=== PATIENT | female | born 1960 | race Caucasian/White ===

== ENCOUNTER → 2024-02-10 15:10 | Outpatient (REF) | payer OTHER, SELFPAY | LOC: ANHLAB 15:10 | PROVIDERS: Visit Provider Plastic Surgery | DX: C44.712 Basal cell carcinoma of skin of right lower limb, including hip (principal) | CPT/HCPCS: 88305 ==

== ENCOUNTER 2024-07-30 10:09 | Outpatient (NON) | payer OTHER, SELFPAY ==
--- OUTSIDE RECORDS SUMMARY | 2024-07-31 10:33 | XMS_ITS | Clinical Summary ---
Author Organization [facility] Address [address] [place] [address] Phone Care Team Providers Care Dental Claims Processor Name Role Phone JESSICA PAGE DO Primary Care Provider [phone] Reason for Visit and Chief Complaint The Chief Complaint is: Well Woman Problems Includes: Problems addressed during this encounter and other active Problems All Visits Onset Date Resolved Date Provider Condition S tatus Osteopenia 10/20/2018 GAMALIEL BULLARD PA-C Act cali Last Documented On 9 9:29AM ; [facility] Synovial Cyst of Popliteal Space 09/28/2018 MORIAH PAGE DO Active Last Documented On 9 9:54PM ; [facility] Dysuria 06/22/2018 JESSICA PAGE DO Active Last Documented On 9 12:56PM ; [facility] Hematuria 06/22/2018 JESSICA PAGE DO Active Last Documented On 9 12:56PM ; [facility] Nephrolithiasis Left 06/20/2018 JESSICA PAGE DO Active Last Documented On 9 12:56PM ; [facility] Note: Unchanged Hemangioma of other sites 06/20/2018 JESSICA ESTRADA DO Active Last Documented On 9 11:04AM ; [facility] Note: Unchanged Bulging Intervertebral Disc Cervical 01/29/2018 JESSICA PAGE DO Active Last Documented On 8 8:49AM ; [facility] Note: Unchanged Skin Neoplasm Malignant 08/22/2014 JESSICA L PALCH EFF DO Active Last Documented On 5 3:44PM ; [facility] Abnormal Pap Smear 08/12/2014 GAMALIEL BULLARD PA-C Active Last Documented On 09/01/2015 9:40AM ; [facility] Note: ASCUS 2013 HPV neg. Plan of Treatment - Return to the clinic if condition worsens or new symptoms arise - Last Documented On 11/08/2022 10:33AM ; [facility] - Follow-up visit 1 year; pt would like to continue to do yearly PAP smears. - Last Documented On 11/08/2022 10:33AM ; [facility] Encourage yearly well woman visits for breast and female health. Labs today to get baseline liver and kidney function prior to starting Veozah. Pt declined lipid panel/other labs. Can repeat CMP in 3-6 mo to monitor liver function. Let me know how it is working for you in about 1 mo - Clinical summary provided to patient . Plan discussed and patient/parent/caregiver states understanding - Last Documented On 11/08/2022 10:33AM ; [facility] Recommended getting mammogram yearly, colonoscopy (Due: 2022 ) and DEXA/bone density test (Due: 2024 ). - Last Documented On 11/08/2022 10:33AM ; [facility] Education and Decision Aids were provided during visit for: Patient education about self -examination of breasts ~Daily calcium (1200mg) and Vit D (800 IU) for osteoporosis prevention Last Documented On 9:06AM ; [facility] Assessments Includes: Assessments from this encounter Findings - [Z01.419 - Encounter for gynecological examination (general) (routine) without abnormal findings] Routine gynecological exam with cervical pap smear - Last Documented On 11/08/2022 10:33AM ; [facility] - [N95.1 - Menopausal and female climacteric states] Menopause - Last Documented On 11/08/2022 10:33AM ; [facility] - [Z12.4 - Encounter for screening for malignant neoplasm of cervix] Screen malignant neoplasm cervix - Last Documented On 11/08/2022 10:33AM ; [facility] Instructions Includes: Instructions from this encounter Education and Decision Aids were provided during visit for: Patient education about self -examination of breasts ~Daily calcium (1200mg) and Vit D (800 IU) for osteoporosis prevention Last Documented On 3 9:06AM ; [facility] Medical Equipment - Implanted Devices Includes: Current Devices No Medical Equipment Recorded Medications Includes: Medications discussed during this encounter and other current Medications Discontinued / Stopped on this date on 09/01/2015 Aspir-Low 81 MG Tablet Delayed Release Pr ovider: Diagnosis: Last Documented On 11/08/2022 9:06AM By ARIEL FROST ; [facility] New / Renewed during this visit GAMALIEL BULLARD PA-C on 11/08/2022 Veozah 45 MG Oral Tablet Provider: CATARINO BULLARD PA-C 30 day supply: 30 tablet, 5 refills Diagnosis: Menopausal and female climacteric states One tablet daily Pharmacy: [address] , [place], [address] - Last Documented On 3 9:49AM By GAMALIEL BULLARD PA-C ; [facility] Current Medications (continue as prescribed) Vitamin D 50 MCG (1999 [place]) Oral Tablet 10/24/2020 Pr ovider: Diagnosis: Last Documented On 10/24/2020 8:54AM By Tiffany FROST ; [facility] ALPRAZolam 0.25 MG Oral Tablet 06/05/2019 Provider: JESSICA PAGE DO Diagnosis: Generalized anxi ety disorder as directed 1/4 to 1 q 8 to 12 hrs prn anxiety Last Documented On 06/05/2019 2:26PM By JESSICA PAGE DO ; [facility] Medications Administered Includes: Administered Medications from this encounter No Administered Medications Recorded Vital Signs Includes: Vital Signs from this encounter Vital Name 11/08/2022 09:00A Blood Pressure Sitting L 138/82 Pulse Rate-Sitting (bpm) 66 Respiration Rate (breaths/min) 20 Temp-Temporal 96.8 Height (in) 65 Weight (lb) 108.5 Body Mass Index 18.1 Body Surface Area 1.5 Oxygen Saturation (%) 100 Last Documented: On 11/08/2022 9:08AM ; [facility] Results Includes: Results discussed during this encounter No Results Recorded For Specified Dates History of Present Illness Includes: History of Present Illness from this encounter SHASHA SOSA is a 62 year old female. - Allergy list reviewed - Medication list reviewed - Not feeling tired - No headache - No breast symptoms - No breast symptoms LAST MAMMO:11/10/21 - No abdominal pain - No abdominal pain PREVIOUS COLONOSCOPY: Next one in 2024 - No female genital symptoms - No vaginal discharge - Hot flashes --horrible - No pain in the pelvic girdle - No anxiety - No depression PREVIOUS DEXA: 11/10/21--no change Social History Description Last Updated Tobacco non-user 01/17/2021 Last Documented On 3 9:00AM ; [facility] Current nonsmoker 04/18/2020 Last Documented On 3 9:00AM ; [facility] Non-smoker 10/22/2019 Last Documented On 3 9:00AM ; [facility] Smoking status : Never smoker 06/24/2019 Last Documented On 3 9:00AM ; [facility] Sexually active ; current partner x 40 y rs 10/20/2018 Last Documented On 3 9:00AM ; [facility] No tobacco use 01/29/2018 Last Documented On 3 9:00AM ; [facility] Procedures and Surgical History Includes: Procedures from this encounter Procedures Code Diagnosis Performing Provider Service L ocation Service Date review of medications documented 1160F Last Documented On 3 9:08AM ; [facility] Obtaining a Pap smear Q0091 Last Documented On 3 9:06AM ; [facility] history of cervical Pap smear PREVIOUS: 2021--ne g 70098 Last Documented On 3 9:43AM ; [facility] Surgical History Last Updated No history of tubal ligation 10/24/2020 Last Documented On 3 9:00AM ; [facility] History of appendectomy 08/12/2014 Last Documented On 3 9:00AM ; [facility] Medical History Includes: Medical History addressed during this encounter Description Last Updated History of screening mammogram was perfo rmed 11/10/2021 11/08/2022 Last Documented On 3 10:33AM ; [facility] History of colonoscopy fiberoptic was pe rformed 09/16/2019 --repeat 5 yrs 10/26/2021 Last Documented On 3 9:00AM ; [facility] LMP: 08/18/2015 09/01/2015 Last Documented On 3 9:00AM ; [facility] History of cervical dysplasia 2013--colp o neg 08/12/2014 Last Documented On 3 9:00AM ; [facility] Aborta 0 08/12/2014 Last Documented On 3 9:00AM ; [facility] 0 08/12/2014 Last Documented On 3 9:00AM ; [facility] Para 0 08/12/2014 Last Documented On 3 9:00AM ; [facility] Family History Includes: Family History addressed during this encounter Description Last Updated Family history of malignant neoplasm of large intestine MATERNAL GRANDMOTHER , MOTHER PRE CANCER 09/01/2015 Last Documented On 3 9:00AM ; [facility] Maternal history of colon cancer Last Documented On 3 9:00AM ; [facility] Maternal history of diabetes mellitus Last Documented On 3 9:00AM ; [facility] Maternal history of heart disease 2014 Last Documented On 3 9:00AM ; [facility] Maternal history of hyperlipidemia 04/11 Last Documented On 3 9:00AM ; [facility] Maternal history of hypertension 015 Last Documented On 3 9:00AM ; [facility] Maternal history of stroke syndrome 03/29 Last Documented On 3 9:00AM ; [facility] Maternal history of thyroid disorder Last Documented On 3 9:00AM ; [facility] Paternal history of heart disease 2014 Last Documented On 3 9:00AM ; [facility] Paternal history of hyperlipidemia 04/11 Last Documented On 3 9:00AM ; [facility] Paternal history of hypertension 015 Last Documented On 3 9:00AM ; [facility] Maternal grandmother's history of diabet es mellitus GRANDMOTHER , AUNT 08/12/2014 Last Documented On 3 9:00AM ; [facility] Family history of essential hypertension GRANDMOTHER, MOTHER 08/12/2014 Last Documented On 3 9:00AM ; [facility] No family history of malignant female br east neoplasm 08/12/2014 Last Documented On 3 9:00AM ; [facility] Review of Systems Includes: Review of Systems from this encounter Systemic: No recent weight change. No edema. Head: No headache. Eyes: No vision problems. Breasts: No breast lump, no nipple discharge, and no pain in breast. Cardiovascular: No chest pain or discomfort. Pulmonary: No dyspnea and not expressed as feeling short of breath. Gastrointestinal: No abdominal pain and no melena. Genitourinary: No hematuria. Neurological: No dizziness and no fainting. Skin: No skin lesions. Mental Status Includes: Mental Status from this encounter Description Oriented to time, place, and person No anxiety Functional Status Includes: Functional Status from this encounter No Functional Status Recorded Physical Exam Includes: Physical Exam from this encounter Allergies Includes: Active Allergies No Known Allergies Encounters Encounter Provider Location Date Check-In Time Check-Out Time Diagnosis [facility] - [facility] GAMALIEL BULLARD PA-C [facility] 023 8:41AM 10:00AM Menopause,Routin e Gynecological Exam with Cervical Pap Smear,Screen Malignant Neoplasm Cervix Insurance Includes: Active Insurance Policies Plan Name Member ID Group # Subscriber Relationship Effect cali Dates 1 - [facility] [employer] [id number] SHANNAN SOSA A Clinical Notes Includes: Clinical Notes from this encounter * Progress note Date Encounter Last Documented by 11/08/2022 [facility] - EST[facility]LISHED PT Last documented on 11/08/2022; 10:33 AM, GAMALIEL BULLARD PA-C; [facility] Active Problems & Conditions - 795.00 - Abnormal Pap Smear - ASCUS 2012 HPV neg. - M50.20 - Bulging Intervertebral Disc Cervical - R30.0 - Dysuria - D18.09 - Hemangioma of other sites - R31.9 - Hematuria - N20.0 - Nephrolithiasis Left - M85.80 - Osteopenia - 173.9 - Skin Neoplasm Malignant - M71.21 - Synovial Cyst of Popliteal Space Chief Complaint The Chief Complaint is: Well Woman. Reason For Visit Visit for: routine history and physical. History of Present Illness MARGARET SOSA is a 62 year old female. - Allergy list reviewed - Medication list reviewed - Not feeling tired - No headache - No breast symptoms - No breast symptoms LAST MAMMO:11/10/21 - No abdominal pain - No abdominal pain PREVIOUS COLONOSCOPY: Next one in 2024 - No female genital symptoms - No vaginal discharge - Hot flashes --horrible - No pain in the pelvic girdle - No anxiety - No depression PREVIOUS DEXA: 11/10/21--no change Current Medication - ALPRAZolam 0.25 MG Oral Tablet as directed 05/02 to 1 q 8 to 12 hrs prn anxiety, 30 days, 0 refills - Vitamin D 50 MCG (1999 [place]) Oral Tablet One tablet daily 0 days, 0 refills Past Medical/Surgical History Reported: LMP: 08/18/2015. : 0, para 0, and aborta 0. Other: Colonoscopy fiberoptic was performed 09/16/2019 --repeat 5 yrs. Screening mammogram was performed 11/10/2021 Diagnoses: Cervical dysplasia 2012--colpo neg Surgical: - Appendectomy - No tubal ligation Social History Tobacco use: No tobacco use. Current nonsmoker, non-smoker, and smoking status: Never smoker. Sexual: Sexually active; current partner x 40 yrs. Allergies - No Known Allergies Family History Essential hypertension GRANDMOTHER, MOTHER Malignant neoplasm of large intestine MATERNAL GRANDMOTHER , MOTHER PRE CANCER No diagnosis of malignant female breast neoplasm Paternal: Systemic hypertension Heart disease Hyperlipidemia Maternal: Systemic hypertension Heart disease Hyperlipidemia Thyroid disorder Diabetes mellitus Stroke syndrome Colon cancer Maternal grandmother's: Diabetes mellitus GRANDMOTHER , AUNT Review Of Systems Systemic: No recent weight change. No edema. Head: No headache. Eyes: No vision problems. Breasts: No breast lump, no nipple discharge, and no pain in breast. Cardiovascular: No chest pain or discomfort. Pulmonary: No dyspnea and not expressed as feeling short of breath. Gastrointestinal: No abdominal pain and no melena. Genitourinary: No hematuria. Neurological: No dizziness and no fainting. Skin: No skin lesions. Physical Findings - Vitals taken 11/08/2022 09:00 am BP-Sitting L 138/82 mmHg Pulse Rate-Sitting 66 bpm Respiration Rate 20 per min Temp-Temporal 96.8 F Height 65 in Weight 108 lbs 8 oz Body Mass Index 18.1 kg/m2 Body Surface Area 1.5 m2 Oxygen Saturation 100 % General Appearance: - Well developed. - Well nourished. - In no acute distress. Neck: Suppleness: - Neck demonstrated no decrease in suppleness. Thyroid: - Showed no abnormalities. Cervical Mass: - No cervical mass was seen. Eyes: General/bilateral: Extraocular Movements: - Normal. Ears: General/bilateral: External Auditory Canal: - External auditory meatus normal. Tympanic Membrane: - Normal. Nose: General/bilateral: Discharge: - No nasal discharge. Sinus Tenderness: - No sinus tenderness. Pharynx: Oropharynx: - Normal. Lymph Nodes: - Supraclavicular lymph nodes were not enlarged. - Axillary lymph nodes were not enlarged. - Right axillary lymph nodes were not enlarged. - Left axillary lymph nodes were not enlarged. Chest: - No thoracic asymmetry was noted. Breasts: Right Breast: - No retraction of the nipple. - No deviation of the nipple. - No abnormal secretion. - No mass was found. - No tenderness. - No diffuse fibrous tissue. Left Breast: - No retraction of the nipple. - No deviation of the nipple. - No abnormal secretion. - No mass was found. - No tenderness. - No diffuse fibrous tissue. Lungs: - Normal breath sounds/voice sounds. - No wheezing was heard. - No rhonchi were heard. - No rales/crackles were heard. Cardiovascular: Heart Rate And Rhythm: - Normal. Murmurs: - No murmurs were heard. Back: - Normal. Abdomen: Auscultation: - Bowel sounds were normal. Palpation: - Abdominal non-tender. - No mass was palpated in the abdomen. Liver: - Not enlarged. Spleen: - Not enlarged. Genitalia: External: - Genitalia showed no abnormalities. Pelvic: - No ovarian mass. Vagina: - No vaginal discharge was observed. - No cystocele was observed. - No rectocele was observed. Cervix: - Showed no lesion. - Did not demonstrate pain elicited by motion. Uterus: - Not enlarged. - Not tender. Uterine Adnexae: - Uterine adnexa was not tender. Musculoskeletal System: General/bilateral: - Overall findings were normal. Neurological: - Oriented to time, place, and person. Psychiatric: Psychiatric: Value PHQ9 score: 0 Skin: - General appearance was normal. - Texture was normal. - Turgor was normal. - Color and pigmentation were normal. - Moisture was normal. - Temperature was normal. - No skin lesions. Assessment - [Z01.419 - Encounter for gynecological examination (general) (routine) without abnormal findings] Routine gynecological exam with cervical pap smear - [N95.1 - Menopausal and female climacteric states] Menopause - [Z12.4 - Encounter for screening for malignant neoplasm of cervix] Screen malignant neoplasm cervix Previous Tests Pathology: Cytology: Cervical Pap smear PREVIOUS: 2021--neg. Therapy - Obtaining a Pap smear. Counseling/Education - Patient education about self-examination of breasts Daily calcium (1200mg) and Vit D (800 IU) for osteoporosis prevention Plan StartCited - Calculus of kidney Lab: CMP EndCited StartCited - Encntr screen mammogram for malignant neoplasm of breast Radiology @ [facility]/*MAMMOGRAPHY: Screening Mammogram Instructions: Additional images/ultrasounds if indicated Please send to PCP EndCited StartCited - Encounter for screening for malignant neoplasm of cervix Lab: PAP SMEAR W/REFLEX HPV(QUEST # [id number]) EndCited StartCited - Menopausal and female climacteric states Veozah 45 MG tablet One tablet daily, 30 days, 5 refills EndCited - Return to the clinic if condition worsens or new symptoms arise - Follow-up visit 1 year; pt would like to continue to do yearly PAP smears. Encourage yearly well woman visits for breast and female health. Labs today to get baseline liver and kidney function prior to starting Veozah. Pt declined lipid panel/other labs. Can repeat CMP in 3-6 mo to monitor liver function. Let me know how it is working for you in about 1 mo - Clinical summary provided to patient . Plan discussed and patient/parent/caregiver states understanding Recommended getting mammogram yearly, colonoscopy (Due: 2022 ) and DEXA/bone density test (Due: 2024 ). Practice Management Review of medications documented.
--- OUTSIDE RECORDS SUMMARY | 2024-07-31 10:34 | XMS_ITS | Clinical Summary ---
Author Organization [facility] Address [address] [place] [id number] Care Team Providers Care Bull Driver Name Role Phone Unavailable Primary Care Provider Unavailabl e Encounters Date Type Department Care Team Description 07/28/2024 External Device Data [facility] Provider, Abstract 07/15/2024 External Device Data [facility] Provider, Abstract 07/08/2024 External Device Data [facility] Provider, Abstract 07/07/2024 External Device Data [facility] Provider, Abstract 07/06/2024 External Device Data [facility] Provider, Abstract 07/04/2024 External Device Data [facility] Provider, Abstract 07/03/2024 External Device Data [facility] Provider, Abstract 07/01/2024 External Device Data [facility] Provider, Abstract 06/17/2024 External Device Data [facility] Provider, Abstract 05/27/2024 External Device Data [facility] Provider, Abstract 05/21/2024 External Device Data [facility] Provider, Abstract 05/12/2024 External Device Data [facility] Provider, Abstract from Last 3 Months Social History Tobacco Use Types Packs/Day Years Used Date Smoking Tobacco: Never Assessed Comments Unknown Sex and Gender Information Value Date Recorded Sex Assigned at Not on file 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 Gender Identity Not on file Sexual Orientation Not on file Plan of Treatment Health Maintenance Due Date Last Done Comments DTAP/TDAP/TD VACCINES (1 - Tdap) 02/23/1980 HPV/Cotest (21-29) 1982 CERVICAL CANCER SCREENING 1991 HPV/Cotest (30-65) 1991 PAP SMEAR 1991 BREAST CANCER SCREENING 2001 COLORECTAL SCREENING 2006 Colorectal Cancer Screening 2006 FIT-DNA Q 3 years 2006 FIT/FOBT Q 1 year 2006 Flex Sig/CT Colonography Q 5 years 2006 ZOSTER VACCINE (1 of 2) 2011 INFLUENZA VACCINE (#1) 2023 RSV VACCINE (60+ or ) (1 - 1-dose 75+ series) 02/23/2036 PNEUMOCOCCAL VACCINE 0-49 YEARS Aged Out No longer eligible based on patient's age to complete this topic Insurance [address] [place] [address] [employer] CHOICE POS II
--- OUTSIDE RECORDS SUMMARY | 2024-07-31 10:34 | XMS_ITS | Clinical Summary ---
Author Organization [facility] Address [address] [place] [address] Phone Care Team Providers Care Product Development Carpenter Name Role Phone KAYLEE DO JESSICA Penny Primary Care Provider [phone] Reason for Visit and Chief Complaint The Chief Complaint is: patient is here due to having left si pain since last Problems Includes: Problems addressed during this encounter and other active Problems All Visits Onset Date Resolved Date Provider Condition S tatus Osteopenia 10/20/2018 GAMALIEL BULLARD PA-C Act cali Last Documented On 9 9:29AM ; [facility] Synovial Cyst of Popliteal Space 09/28/2018 MORIAH BAILEY DO Active Last Documented On 9 9:54PM ; [facility] Dysuria 06/22/2018 JESSICA BAILEY DO Active Last Documented On 9 12:56PM ; [facility] Hematuria 06/22/2018 JESSICA BAILEY DO Active Last Documented On 9 12:56PM ; [facility] Nephrolithiasis Left 06/20/2018 JESSICA BAILEY DO Active Last Documented On 9 12:56PM ; [facility] Note: Unchanged Hemangioma of other sites 06/20/2018 JESSICA ESTRADA DO Active Last Documented On 9 11:04AM ; [facility] Note: Unchanged Bulging Intervertebral Disc Cervical 01/29/2018 JESSICA BAILEY DO Active Last Documented On 8 8:49AM ; [facility] Note: Unchanged Skin Neoplasm Malignant 08/22/2014 JESSICA ANDREA DO Active Last Documented On 5 3:44PM ; [facility] Abnormal Pap Smear 08/12/2014 GAMALIEL BULLARD PA-C Active Last Documented On 09/01/2015 9:40AM ; [facility] Note: ASCUS 2013 HPV neg. Plan of Treatment - Return to the clinic if condition worsens or new symptoms arise - Last Documented On 12/01/2022 5:37PM ; [facility] - Go to the emergency room if condition worsens - Last Documented On 12/01/2022 5:37PM ; [facility] - Watch for signs/symptoms of infection - Last Documented On 12/01/2022 5:37PM ; [facility] - Medication instruction - Last Documented On 12/01/2022 5:37PM ; [facility] PLAN [Use for s.o.a.p. note free text]. - Last Documented On 12/01/2022 5:37PM ; [facility] Continue taking ibuprofen. She was advised to avoid bending or twisting. - Last Documented On 12/01/2022 5:37PM ; [facility] Pending Tests Order Diagnosis Results Due Ordering Albina morfin In office procedures - *Family Practice OMT 1-2 Areas Segmental and somatic dysfunction of sacral region 12/11/22 JESSICA BAILEY DO Last Documented On 3 5:37PM ; [facility] Instructions to patient Go to the emergency room if condition worsens Last Documented On 3 9:26AM ; [facility] Watch for signs/symptoms of infection Last Documented On 3 9:26AM ; [facility] Assessments Includes: Assessments from this encounter Findings - Arthralgias of multiple sites [M25.50 - Pain in unspecified joint] - Last Documented On 12/01/2022 5:37PM ; [facility] - Somatic dysfunction of lumbar region [M99.03 - Segmental and somatic dysfunction of lumbar region] - Last Documented On 12/01/2022 5:37PM ; [facility] - Somatic dysfunction of sacroiliac region [M99.04 - Segmental and somatic dysfunction of sacral region] - Last Documented On 12/01/2022 5:37PM ; [facility] - Somatic dysfunction of sacrum [M99.04 - Segmental and somatic dysfunction of sacral region] - Last Documented On 12/01/2022 5:37PM ; [facility] Instructions Includes: Instructions from this encounter Instructions to patient Go to the emergency room if condition worsens Last Documented On 3 9:26AM ; [facility] Watch for signs/symptoms of infection Last Documented On 3 9:26AM ; [facility] Medical Equipment - Implanted Devices Includes: Current Devices No Medical Equipment Recorded Medications Includes: Medications discussed during this encounter and other current Medications Current Medications (continue as prescribed) Vitamin D 50 MCG (1999) Oral Tablet 10/24/2020 Pr ovider: Diagnosis: Last Documented On 10/24/2020 8:54AM By Tiffany FROST ; [facility] ALPRAZolam 0.25 MG Oral Tablet 06/05/2019 Provider: JESSICA BAILEY DO Diagnosis: Generalized anxi ety disorder as directed 05/02 to q 8 to 12 hrs prn anxiety Last Documented On 06/05/2019 2:26PM By JESSICA BAILEY DO ; [facility] Medications Administered Includes: Administered Medications from this encounter No Administered Medications Recorded Vital Signs Includes: Vital Signs from this encounter Vital Name 11/27/2022 09:09A Blood Pressure Sitting L 126/80 Pulse Rate-Sitting (bpm) 71 Respiration Rate (breaths/min) 20 Height (in) 65 Weight (lb) 109 Body Mass Index 18.1 Body Surface Area 1.5 Oxygen Saturation (%) 97 Last Documented: On 11/27/2022 9:10AM ; [facility] Results Includes: Results discussed during this encounter No Results Recorded For Specified Dates History of Present Illness Includes: History of Present Illness from this encounter SHASHA SOSA is a 62 year old female. - Allergy list reviewed - Medication list reviewed - Pain - No muscle weakness - Lower back pain radiating - Muscle spasms - No recent falls - No numbness - No sleep disturbances The patient is a pleasant 62-year-old female, who presents today with acute concern. She complains of pain in her left hip since last . The patient points to the left sacroiliac joint as the site of worse pain. She reports that the pain was so severe while she was sitting in the chair. She has tried ibuprofen with relief, but pain returned when it wore off. She has also had lower back pain for a long period of time. An x-ray of lumbar sine was done in the clinic, which showed mild arthritis and spasms. Social History Description Last Updated Tobacco non-user 01/17/2021 Last Documented On 3 9:09AM ; [facility] Current nonsmoker 04/18/2020 Last Documented On 3 9:09AM ; [facility] Non-smoker 10/22/2019 Last Documented On 3 9:09AM ; [facility] Smoking status : Never smoker 06/24/2019 Last Documented On 3 9:09AM ; [facility] Sexually active ; current partner x 40 y rs 10/20/2018 Last Documented On 3 9:09AM ; [facility] No tobacco use 01/29/2018 Last Documented On 3 9:09AM ; [facility] Procedures and Surgical History Includes: Procedures from this encounter Procedures Code Diagnosis Performing Provider Service L ocation Service Date continue current medication Last Documented On 3 5:36PM ; [facility] plan of care reviewed and agreed to Last Documented On 3 9:26AM ; [facility] plan of care reviewed and agreed to by t he patient Last Documented On 3 9:26AM ; [facility] high velocity / low amplitude osteopathi c manipulative treatment TOLERATED WELL Last Documented On 3 5:36PM ; [facility] muscle energy therapy TOLERATED WELL Last Documented On 3 5:36PM ; [facility] Pt encouraged to be compliant with curre nt treatment Last Documented On 3 9:26AM ; [facility] Discussed Exercise Last Documented On 3 5:36PM ; [facility] OMT - Soft tissue/muscle stretching tech niques TOLERATED WELL Last Documented On 3 5:36PM ; [facility] Surgical History Last Updated No history of tubal ligation 10/24/2020 Last Documented On 3 9:09AM ; [facility] History of appendectomy 08/12/2014 Last Documented On 3 9:09AM ; [facility] Medical History Includes: Medical History addressed during this encounter Description Last Updated History of screening mammogram was perfo rmed 11/10/2021 11/08/2022 Last Documented On 3 9:09AM ; [facility] History of colonoscopy fiberoptic was pe rformed 09/16/2019 --repeat 5 yrs 10/26/2021 Last Documented On 3 9:09AM ; [facility] LMP: 08/18/2015 09/01/2015 Last Documented On 3 9:09AM ; [facility] History of cervical dysplasia 2012--colp o neg 08/12/2014 Last Documented On 3 9:09AM ; [facility] Aborta 0 08/12/2014 Last Documented On 3 9:09AM ; [facility] 0 08/12/2014 Last Documented On 3 9:09AM ; [facility] Para 0 08/12/2014 Last Documented On 3 9:09AM ; [facility] Family History Includes: Family History addressed during this encounter Description Last Updated Family history of malignant neoplasm of large intestine MATERNAL GRANDMOTHER , MOTHER PRE CANCER 09/01/2015 Last Documented On 3 9:09AM ; [facility] Maternal history of colon cancer 015 Last Documented On 3 9:09AM ; [facility] Maternal history of diabetes mellitus Last Documented On 3 9:09AM ; [facility] Maternal history of heart disease 2014 Last Documented On 3 9:09AM ; [facility] Maternal history of hyperlipidemia 04/11 Last Documented On 3 9:09AM ; [facility] Maternal history of hypertension 015 Last Documented On 3 9:09AM ; [facility] Maternal history of stroke syndrome 03/29 Last Documented On 3 9:09AM ; [facility] Maternal history of thyroid disorder Last Documented On 3 9:09AM ; [facility] Paternal history of heart disease 2014 Last Documented On 3 9:09AM ; [facility] Paternal history of hyperlipidemia 04/11 Last Documented On 3 9:09AM ; [facility] Paternal history of hypertension 015 Last Documented On 3 9:09AM ; [facility] Maternal grandmother's history of diabet es mellitus GRANDMOTHER , AUNT 08/12/2014 Last Documented On 3 9:09AM ; [facility] Family history of essential hypertension GRANDMOTHER, MOTHER 08/12/2014 Last Documented On 3 9:09AM ; [facility] No family history of malignant female br east neoplasm 08/12/2014 Last Documented On 3 9:09AM ; [facility] Review of Systems Includes: Review of Systems from this encounter Head: No headache. Cardiovascular: No chest pain or discomfort and no palpitations. Pulmonary: No dyspnea. Musculoskeletal: Pain localized to one or more joints. Neurological: No dizziness. Psychological: No sleep disturbances. Mental Status Includes: Mental Status from this encounter Description Oriented to time, place, and person Functional Status Includes: Functional Status from this encounter No Functional Status Recorded Physical Exam Includes: Physical Exam from this encounter Allergies Includes: Active Allergies No Known Allergies Encounters Encounter Provider Location Date Check-In Time Check-Out Time Diagnosis PROBLEM VISIT [facility]ESSICA [facility]AI[facility]/28/19 23 8:41AM 10:02AM Somatic Dysfunction of Lumbar Region,Somatic Dysfunction of Sacroiliac Region,Somatic Dysfunction of Sacrum,Arthral gias Multiple Sites Insurance Includes: Active Insurance Policies Plan Name Member ID Group # Subscriber Relationship Effect cali Dates 1 - [employer] [id number] SHANNAN SOSA A Clinical Notes Includes: Clinical Notes from this encounter * Progress note Date Encounter Last Documented by 11/27/2022 PROBLEM VISIT Last documented on 12/01/2022; 5:37 PM, JESSICA BAILEY DO; [facility] Active Problems & Conditions - 795.00 - Abnormal Pap Smear - M50.20 - Bulging Intervertebral Disc Cervical - R30.0 - Dysuria - D18.09 - Hemangioma of other sites - R31.9 - Hematuria - N20.0 - Nephrolithiasis Left - M85.80 - Osteopenia - 173.9 - Skin Neoplasm Malignant - M71.21 - Synovial Cyst of Popliteal Space Chief Complaint The Chief Complaint is: Patient is here due to having left si pain since last . History of Present Illness MARGARET SOSA is a 62 year old female. - Allergy list reviewed - Medication list reviewed - Pain - No muscle weakness - Lower back pain radiating - Muscle spasms - No recent falls - No numbness - No sleep disturbances The patient is a pleasant 62-year-old female, who presents today with acute concern. She complains of pain in her left hip since last . The patient points to the left sacroiliac joint as the site of worse pain. She reports that the pain was so severe while she was sitting in the chair. She has tried ibuprofen with relief, but pain returned when it wore off. She has also had lower back pain for a long period of time. An x-ray of lumbar sine was done in the clinic, which showed mild arthritis and spasms. Current Medication - ALPRAZolam 0.25 MG Oral Tablet as directed /4 to 1 q 8 to 12 hrs prn anxiety, 30 days, 0 refills - [place] 45 MG Oral Tablet One tablet daily, 30 days, 5 refills - Vitamin D 50 MCG (1999 [...] mellitus GRANDMOTHER , AUNT Review Of Systems Head: No headache. Cardiovascular: No chest pain or discomfort and no palpitations. Pulmonary: No dyspnea. Musculoskeletal: Pain localized to one or more joints. Neurological: No dizziness. Psychological: No sleep disturbances. Physical Findings - Vitals taken 11/27/2022 09:09 am BP-Sitting L 126/80 mmHg Pulse Rate-Sitting 71 bpm Respiration Rate 20 per min Height 65 in Weight 109 lbs Body Mass Index 18.1 kg/m2 Body Surface Area 1.5 m2 Oxygen Saturation 97 % General Appearance: - In no acute distress. Eyes: General/bilateral: Pupils: - PERRLA. Lungs: - Normal breath sounds/voice sounds. Cardiovascular: Heart Rate And Rhythm: - Normal. Murmurs: - No murmurs were heard. Edema: - Not present. Back: - Normal. Musculoskeletal System: General/bilateral: - Sacrum Two-Point Discrimination Neutral Left. - Musculoskeletal system: normal. Thoracic Spine: General/bilateral: - Thoracic spine exhibited rib motion on the left. - Palpation of the thoracic spine revealed abnormalities. - Thoracic spine exhibited tenderness on palpation. - Side Bent Left, Rotated Right. Lumbar / Lumbosacral Spine: General/bilateral: - Lumbosacral spine exhibited muscle spasms. - Sacro-iliac tenderness on the left. - Side Bent Right, Rotated Left. - Palpation of the lumbosacral spine revealed no abnormalities. - Straight-leg raise test normal. Toes: General/bilateral: - Toe Raises were =. Neurological: - Oriented to time, place, and person. Sensation: - No numbness to lower extremity(s). Gait And Stance: - Normal. Reflexes: - Deep tendon reflexes were normal. Peripheral Nerves: - Braggarts test was negative. - Leseques Testwas negative. Skin: - General appearance was normal. Assessment - Arthralgias of multiple sites [M25.50 - Pain in unspecified joint] - Somatic dysfunction of lumbar region [M99.03 - Segmental and somatic dysfunction of lumbar region] - Somatic dysfunction of sacroiliac region [M99.04 - Segmental and somatic dysfunction of sacral region] - Somatic dysfunction of sacrum [M99.04 - Segmental and somatic dysfunction of sacral region] Therapy - Discussed Exercise. - Continue current medication. - Pt encouraged to be compliant with current treatment. - High velocity / low amplitude osteopathic manipulative treatment TOLERATED WELL, muscle energy therapy TOLERATED WELL, and OMT - Soft tissue/muscle stretching techniques TOLERATED WELL. - Plan of care reviewed and agreed to by the patient. Plan StartCited - Segmental and somatic dysfunction of lumbar region X-ray/IN OFFICE XRAYS: Lumbar Spine Complete EndCited StartCited - Segmental and somatic dysfunction of sacral region In office procedures/*Family Practice: OMT 1-2 Areas EndCited - Return to the clinic if condition worsens or new symptoms arise - Go to the emergency room if condition worsens - Watch for signs/symptoms of infection - Medication instruction PLAN [Use for s.o.a.p. note free text]. Continue taking ibuprofen. She was advised to avoid bending or twisting. Other Konstantin Swartz, scribing the following service on behalf of Dr. Jessica Bailey, Lenora.Karina.
--- OUTSIDE RECORDS SUMMARY | 2024-07-31 10:34 | XMS_ITS ---
Care Plan - [facility] Created on: July 31, 2024 TATUMNYROBBIECHILANGO Conteh : 1960 Sex: Female Author Organization [facility] Address [address] [address] Phone Care Team Providers Care Order Desk Clerk Name Role Phone JESSICA PAGE DO Primary Care Provider [phone]
--- OUTSIDE RECORDS SUMMARY | 2024-07-31 10:34 | XMS_ITS | Clinical Summary ---
Author Organization [facility] Address [address] [place] [address] Phone Care Team Providers Care Psychologist Developmental Name Role Phone JESSICA PAGE DO Primary Care Provider [phone] Reason for Visit and Chief Complaint * PHONE CALL Problems Includes: Problems addressed during this encounter and other active Problems All Visits Onset Date Resolved Date Provider Condition S tatus Osteopenia 10/20/2018 GAMALIEL BULLARD PA-C Act cali Last Documented On 9 9:29AM ; [facility] Synovial Cyst of Popliteal Space 09/28/2018 MORIAH PAGE DO Active Last Documented On 9 9:54PM ; [facility] Dysuria 06/22/2018 JESSICA PAGE DO Active Last Documented On 9 12:56PM ; [facility] Hematuria 06/22/2018 JESSICA PAGE DO Active Last Documented On 9 12:56PM ; [facility] Nephrolithiasis Left 06/20/2018 JESSICA PAGE DO Active Last Documented On 9 12:56PM ; [facility] Note: Unchanged Hemangioma of other sites 06/20/2018 JESSICA ESTRADA DO Active Last Documented On 9 11:04AM ; [facility] Note: Unchanged Bulging Intervertebral Disc Cervical 01/29/2018 JESSICA PAGE DO Active Last Documented On 8 8:49AM ; [facility] Note: Unchanged Skin Neoplasm Malignant 08/22/2014 JESSICA ANDREA DO Active Last Documented On 5 3:44PM ; [facility] Abnormal Pap Smear 08/12/2014 GAMALIEL BULLARD PA-C Active Last Documented On 09/01/2015 9:40AM ; [facility] Note: ASCUS 2013 HPV neg. Plan of Treatment No Plan of Treatment Recorded Assessments Includes: Assessments from this encounter No Assessments Recorded Medical Equipment - Implanted Devices Includes: Current Devices No Medical Equipment Recorded Medications Includes: Medications discussed during this encounter and other current Medications Current Medications (continue as prescribed) Vitamin D 50 MCG (1999) Oral Tablet 10/24/2020 Pr ovider: Diagnosis: Last Documented On 10/24/2020 8:54AM By Tiffany FROST ; [facility] ALPRAZolam 0.25 MG Oral Tablet 06/05/2019 Provider: JESSICA PAGE DO Diagnosis: Generalized anxi ety disorder as directed 05/02 to 1 q 8 to 12 hrs prn anxiety Last Documented On 06/05/2019 2:26PM By JESSICA PAGE DO ; [facility] Medications Administered Includes: Administered Medications from this encounter No Administered Medications Recorded Results Includes: Results discussed during this encounter No Results Recorded For Specified Dates History of Present Illness Includes: History of Present Illness from this encounter No History of Present Illness Recorded Social History Description Last Updated Tobacco non-user 01/17/2021 Last Documented On 3 9:49AM ; [facility] Current nonsmoker 04/18/2020 Last Documented On 3 9:49AM ; [facility] Non-smoker 10/22/2019 Last Documented On 3 9:49AM ; [facility] Smoking status : Never smoker 06/24/2019 Last Documented On 3 9:49AM ; [facility] Sexually active ; current partner x 40 y rs 10/20/2018 Last Documented On 3 9:49AM ; [facility] No tobacco use 01/29/2018 Last Documented On 3 9:49AM ; [facility] Procedures and Surgical History Surgical History Last Updated No history of tubal ligation 10/24/2020 Last Documented On 3 9:49AM ; [facility] History of appendectomy 08/12/2014 Last Documented On 3 9:49AM ; [facility] Medical History Includes: Medical History addressed during this encounter Description Last Updated History of screening mammogram was perfo rmed 11/10/2021 11/08/2022 Last Documented On 3 9:49AM ; [facility] History of colonoscopy fiberoptic was pe rformed 09/16/2019 --repeat 5 yrs 10/26/2021 Last Documented On 3 9:49AM ; [facility] LMP: 08/18/2015 09/01/2015 Last Documented On 3 9:49AM ; [facility] History of cervical dysplasia 2012--colp o neg 08/12/2014 Last Documented On 3 9:49AM ; [facility] Aborta 0 08/12/2014 Last Documented On 3 9:49AM ; [facility] 0 08/12/2014 Last Documented On 3 9:49AM ; [facility] Para 0 08/12/2014 Last Documented On 3 9:49AM ; [facility] Family History Includes: Family History addressed during this encounter Description Last Updated Family history of malignant neoplasm of large intestine MATERNAL GRANDMOTHER , MOTHER PRE CANCER 09/01/2015 Last Documented On 3 9:49AM ; [facility] Maternal history of colon cancer 015 Last Documented On 3 9:49AM ; [facility] Maternal history of diabetes mellitus Last Documented On 3 9:49AM ; [facility] Maternal history of heart disease 2014 Last Documented On 3 9:49AM ; [facility] Maternal history of hyperlipidemia 04/11 Last Documented On 3 9:49AM ; [facility] Maternal history of hypertension 015 Last Documented On 3 9:49AM ; [facility] Maternal history of stroke syndrome 03/29 Last Documented On 3 9:49AM ; [facility] Maternal history of thyroid disorder Last Documented On 3 9:49AM ; [facility] Paternal history of heart disease 2014 Last Documented On 3 9:49AM ; [facility] Paternal history of hyperlipidemia 04/11 Last Documented On 3 9:49AM ; [facility] Paternal history of hypertension 015 Last Documented On 3 9:49AM ; [facility] Maternal grandmother's history of diabet es mellitus GRANDMOTHER , AUNT 08/12/2014 Last Documented On 3 9:49AM ; [facility] Family history of essential hypertension GRANDMOTHER, MOTHER 08/12/2014 Last Documented On 3 9:49AM ; [facility] No family history of malignant female br east neoplasm 08/12/2014 Last Documented On 3 9:49AM ; [facility] Review of Systems Includes: Review of Systems from this encounter No Review of Systems Recorded Mental Status Includes: Mental Status from this encounter No Mental Status Recorded Functional Status Includes: Functional Status from this encounter No Functional Status Recorded Physical Exam Includes: Physical Exam from this encounter No Physical Exam Recorded Allergies Includes: Active Allergies No Known Allergies Encounters Encounter Provider Location Date Check-In Time Check-Out Time Diagnosis * PHONE CALL GAMALIEL BULLARD PA-C 12/26/2022 8:40AM 11:59PM Insurance Includes: Active Insurance Policies Plan Name Member ID Group # Subscriber Relationship Effect cali Dates 1 - [facility] [employer] [id number] SHANNAN SOSA Clinical Notes Includes: Clinical Notes from this encounter * Progress note Date Encounter Last Documented by 12/26/2022 * PHONE CALL Last documented on 12/27/2022; 9:49 AM, GAMALIEL BULLARD PA-C; [facility] Active Problems & Conditions - 795.00 - Abnormal Pap Smear - ASCUS 2012 HPV neg. - M50.20 - Bulging Intervertebral Disc Cervical - R30.0 - Dysuria - D18.09 - Hemangioma of other sites - R31.9 - Hematuria - N20.0 - Nephrolithiasis Left - M85.80 - Osteopenia - 173.9 - Skin Neoplasm Malignant - M71.21 - Synovial Cyst of Popliteal Space Chief Complaint Phone Call - Chief Concern: reason for call: Pt called to let you know that she has stopped Veozah. She has been on it for a month and it did not help at all. thanks! pt phone # for return call: [phone] Date/Initials: 12/26 [facility]. Current Medication - ALPRAZolam 0.25 MG Oral Tablet as directed 1/4 to 1 q 8 [...]
--- OUTSIDE RECORDS SUMMARY | 2024-07-31 10:34 | XMS_ITS | Clinical Summary ---
Author Organization [facility] Address [address] [place] [address] Phone Care Team Providers Care Chief Nurse Name Role Phone KAYLEE DO JESSICA Penny Primary Care Provider [phone] Reason for Visit and Chief Complaint The Chief Complaint is: Well Woman Problems Includes: Problems addressed during this encounter and other active Problems Current Visit Onset Date Resolved Date Provider Conditio n Status Osteopenia 10/20/2018 GAMALIEL BULLARD PA-C Act cali Last Documented On 9 9:29AM ; [facility] Past Visits Onset Date Resolved Date Provider Condition Status Synovial Cyst of Popliteal Space 09/28/2018 JESSICA PAGE DO Active Last Documented On 9 9:54PM ; [facility] Dysuria 06/22/2018 JESSICA PAGE DO Active Last Documented On 9 12:56PM ; [facility] Hematuria 06/22/2018 JESSICA PAGE DO Active Last Documented On 9 12:56PM ; [facility] Nephrolithiasis Left 06/20/2018 JESSICA PAGE DO Active Last Documented On 9 12:56PM ; [facility] Note: Unchanged Hemangioma of other sites 06/20/2018 JESSICA ESTRADA DO Active Last Documented On 9 11:04AM ; [facility] Note: Unchanged Bulging Intervertebral Disc Cervical 01/29/2018 JESSICA PAGE DO Active Last Documented On 8 8:49AM ; [facility] Note: Unchanged Skin Neoplasm Malignant 08/22/2014 JESSICA NEWMAN EFF DO Active Last Documented On 5 3:44PM ; [facility] Abnormal Pap Smear 08/12/2014 GAMALIEL BULLARD PA-C Active Last Documented On 09/01/2015 9:40AM ; [facility] Note: ASCUS 2013 HPV neg. Plan of Treatment - Return to the clinic if condition worsens or new symptoms arise - Last Documented On 10/26/2021 9:44AM ; [facility] - Follow-up visit 1 year; if this PAP normal, pt would like to continue annual PAPs. - Last Documented On 10/26/2021 9:44AM ; [facility] Encourage yearly well woman visits for breast and female health. OK to try accupuncture. Discussed Brisdelle or Paroxetine for hot flashes. Also can try DIM supplement for hot flashes - Clinical summary provided to patient . Plan discussed and patient/parent/caregiver states understanding - Last Documented On 10/26/2021 9:44AM ; [facility] Recommended getting mammogram yearly, colonoscopy (Due: 08/2024 ) and DEXA/bone density test (Due: 10/2021 ). - Last Documented On 10/26/2021 9:44AM ; [facility] Education and Decision Aids were provided during visit for: Patient education about self -examination of breasts ~Daily calcium (1200mg) and Vit D (800 IU) for osteoporosis prevention Last Documented On 8:30AM ; [facility] Assessments Includes: Assessments from this encounter Findings - Visit for: screening for osteoporosis - Last Documented On 10/26/2021 9:44AM ; [facility] - MAMMOGRAM SCREENING - Last Documented On 10/26/2021 9:44AM ; [facility] - Routine gynecological exam with cervical pap smear - Last Documented On 10/26/2021 9:44AM ; [facility] - Menopause - Last Documented On 10/26/2021 9:44AM ; [facility] - Osteopenia - Last Documented On 10/26/2021 9:44AM ; [facility] - Screen malignant neoplasm cervix - Last Documented On 10/26/2021 9:44AM ; [facility] Instructions Includes: Instructions from this encounter Education and Decision Aids were provided during visit for: Patient education about self -examination of breasts ~Daily calcium (1200mg) and Vit D (800 IU) for osteoporosis prevention Last Documented On 2 8:30AM ; [facility] Medical Equipment - Implanted Devices Includes: Current Devices No Medical Equipment Recorded Medications Includes: Medications discussed during this encounter and other current Medications Current Medications (continue as prescribed) Vitamin D 50 MCG (2000 UT) Oral Tablet 10/24/2020 Pr ovider: Diagnosis: Last Documented On 10/24/2020 8:54AM By Tiffany FROST ; [facility] ALPRAZolam 0.25 MG Oral Tablet 06/05/2019 Provider: JESSICA PAGE DO Diagnosis: Generalized anxi ety disorder as directed 05/02 to q 8 to 12 hrs prn anxiety Last Documented On 06/05/2019 2:26PM By JESSICA PAGE DO ; [facility] Medications Administered Includes: Administered Medications from this encounter No Administered Medications Recorded Vital Signs Includes: Vital Signs from this encounter Vital Name 10/26/2021 08:26A Blood Pressure Sitting L 138/80 Pulse Rate-Sitting (bpm) 65 Respiration Rate (breaths/min) 21 Temp-Temporal 97.3 Height (in) 64.13639 Weight (lb) 110.5 Body Mass Index (kg/m2) 18.4 Body Surface Area (m2) 1.5 Oxygen Saturation (%) 99 Last Documented: On 10/26/2021 8:33AM ; [facility] Results Includes: Results discussed during this encounter No Results Recorded For Specified Dates History of Present Illness Includes: History of Present Illness from this encounter SHASHA SOSA is a 61 year old female. - Allergy list reviewed - Medication list reviewed - Not feeling tired - No headache - No breast symptoms - No breast symptoms LAST MAMMO: 10/28/20--normal - No abdominal pain - No abdominal pain PREVIOUS COLONOSCOPY: 09/16/19--repeat in 5 yrs - No female genital symptoms - No vaginal discharge - Hot flashes --has tried OTC black cohosh and Estroven. Considering accupuncture. Clonidine didn't help - No pain in the pelvic girdle - No anxiety - No depression PREVIOUS DEXA: 10/28/19--osteopenia Social History Description Last Updated Tobacco non-user 01/17/2021 Last Documented On 2 8:26AM ; [facility] Current nonsmoker 04/18/2020 Last Documented On 2 8:26AM ; [facility] Non-smoker 10/22/2019 Last Documented On 2 8:26AM ; [facility] Smoking status : Never smoker 06/24/2019 Last Documented On 2 8:26AM ; [facility] Sexually active ; current partner x 40 y rs 10/20/2018 Last Documented On 2 8:26AM ; [facility] No tobacco use 01/29/2018 Last Documented On 2 8:26AM ; [facility] Procedures and Surgical History Includes: Procedures from this encounter Procedures Code Diagnosis Performing Provider Service L ocation Service Date use of tobacco assessment performed 1000F Last Documented On 2 8:34AM ; [facility] review of medications documented 1160F Last Documented On 2 8:34AM ; [facility] Obtaining a Pap smear Q0091 Last Documented On 2 8:30AM ; [facility] history of cervical Pap smear PREVIOUS: 09/2020-- normal 99055 Last Documented On 2 8:37AM ; [facility] patient recently had a dexa scan 10/28/19- -osteopenia Last Documented On 2 8:38AM ; [facility] Surgical History Last Updated No history of tubal ligation 10/24/2020 Last Documented On 2 8:26AM ; [facility] History of appendectomy 08/12/2014 Last Documented On 2 8:26AM ; [facility] Medical History Includes: Medical History addressed during this encounter Description Last Updated History of colonoscopy fiberoptic was pe rformed 09/16/2019 --repeat 5 yrs 10/26/2021 Last Documented On 2 9:44AM ; [facility] History of screening mammogram was perfo rmed 10/28/2020 10/26/2021 Last Documented On 2 9:44AM ; [facility] LMP: 08/18/2015 09/01/2015 Last Documented On 2 8:26AM ; [facility] History of cervical dysplasia 2013--colp o neg 08/12/2014 Last Documented On 2 8:26AM ; [facility] Aborta 0 08/12/2014 Last Documented On 2 8:26AM ; [facility] 0 08/12/2014 Last Documented On 2 8:26AM ; [facility] Para 0 08/12/2014 Last Documented On 2 8:26AM ; [facility] Family History Includes: Family History addressed during this encounter Description Last Updated Family history of malignant neoplasm of large intestine MATERNAL GRANDMOTHER , MOTHER PRE CANCER 09/01/2015 Last Documented On 2 8:26AM ; [facility] Maternal history of colon cancer 015 Last Documented On 2 8:26AM ; [facility] Maternal history of diabetes mellitus Last Documented On 2 8:26AM ; [facility] Maternal history of heart disease 2014 Last Documented On 2 8:26AM ; [facility] Maternal history of hyperlipidemia 04/11 Last Documented On 2 8:26AM ; [facility] Maternal history of hypertension Last Documented On 2 8:26AM ; [facility] Maternal history of stroke syndrome 03/29 Last Documented On 2 8:26AM ; [facility] Maternal history of thyroid disorder Last Documented On 2 8:26AM ; [facility] Paternal history of heart disease 2014 Last Documented On 2 8:26AM ; [facility] Paternal history of hyperlipidemia 04/11 Last Documented On 2 8:26AM ; [facility] Paternal history of hypertension 015 Last Documented On 2 8:26AM ; [facility] Maternal grandmother's history of diabet es mellitus GRANDMOTHER , AUNT 08/12/2014 Last Documented On 2 8:26AM ; [facility] Family history of essential hypertension GRANDMOTHER, MOTHER 08/12/2014 Last Documented On 2 8:26AM ; [facility] No family history of malignant female br east neoplasm 08/12/2014 Last Documented On 2 8:26AM ; [facility] Review of Systems Includes: Review [...] WOMAN - ESTABLISHED PT GAMALIEL BULLARD PA-C [facility] 022 8:17AM 9:03AM Menopause,Routin e Gynecological Exam with Cervical Pap Smear,Other Screening For Malignant Neoplasm of Breast Z12.39,Screen Malignant Neoplasm Cervix,Osteopeni a,Visit For: Screening Exam Osteoporosis Insurance Includes: Active Insurance Policies Plan Name Member ID Group # Subscriber Relationship Effect cali Dates 1 - [employer] [id number] SHANNAN SOSA A Clinical Notes Includes: Clinical Notes from this encounter No Clinical Notes Recorded
--- OUTSIDE RECORDS SUMMARY | 2024-07-31 10:35 | XMS_ITS ---
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 Name Role Phone JESSICA PAGE DO Primary Care Provider [phone] Problems Includes: Active, inactive, and resolved Problems All Visits Onset Date Resolved Date Provider Condition S tatus Osteopenia 10/20/2018 GAMALIEL BULLARD PA-C Act cali Last Documented On 9 9:29AM ; [facility] Synovial Cyst of Popliteal Space 09/28/2018 MORIAH PAGE DO Active Last Documented On 9 9:54PM ; [facility] Dysuria 06/22/2018 JESSICA PAGE DO Active Last Documented On 9 12:56PM ; [facility] Hematuria 06/22/2018 JESSICA PAGE DO Active Last Documented On 9 12:56PM ; [facility] Nephrolithiasis Left 06/20/2018 JESSICA PAGE DO Active Last Documented On 9 12:56PM ; [facility] Note: Unchanged Hemangioma of other sites 06/20/2018 JESSICA ESTRADA DO Active Last Documented On 9 11:04AM ; [facility] Note: Unchanged Bulging Intervertebral Disc Cervical 01/29/2018 JESSICA PAGE DO Active Last Documented On 8 8:49AM ; [facility] Note: Unchanged Open Wound 08/22/2014 Unknown GAMALIEL BULLARD PA-C Res olved Last Documented On 6 10:12AM ; [facility] Skin Neoplasm Malignant 08/22/2014 JESSICA ANDREA DO Active Last Documented On 5 3:44PM ; [facility] Abnormal Pap Smear 08/12/2014 GAMALIEL BULLARD PA-C Active Last Documented On 09/01/2015 9:40AM ; [facility] Note: ASCUS 2013 HPV neg. Plan of Treatment Findings Encounter Date Go to the emergency room if condition worsens PROBLEM VISIT with JESSICA PAGE DO 11/27/2022 Last Documented On 3 5:37PM ; [facility] Medication instruction PROBLEM VISIT with JESSICA PAGE DO 11/27/2022 Last Documented On 3 5:37PM ; [facility] Ordered return to the clinic if condition worsens or new symptoms arise PROBLEM VISIT with JESSICA PAGE DO 11/27/2022 Last Documented On 3 5:37PM ; [facility] PLAN [Use for s.o.a.p. note free text] PROBLEM VISIT with JESSICA PAGE DO 11/27/2022 Last Documented On 3 5:37PM ; [facility] Watch for signs/symptoms of infection OR OBLEM VISIT with JESSICA PAGE DO 11/27/2022 Last Documented On 3 5:37PM ; [facility] Recommended getting mammogra m yearly, colonoscopy (Due: 2022 ) and DEXA/bone density test (Due: 2024 ) WELL WOMAN - ESTABLISHED PT with GAMALIEL BULLARD PA-C 11/08/2022 Last Documented On 3 10:33AM ; [facility] Ordered Clinical summary pro vided to patient . Plan discussed and patient/parent/caregiver states understanding WELL WOMAN - ESTABLISHED PT with GAMALIEL BULLARD PA-C 11/08/2022 Last Documented On 3 10:33AM ; [facility] Ordered follow-up visit 1 khai santa; pt would like to continue to do yearly PAP smears. Encourage yearly well woman visits for breast and female health. Labs today to get baseline liver and kidney function prior to starting Veozah. Pt declined lipid panel/other labs. Can repeat CMP in 3-6 mo to monitor liver function. Let me know how it is working for you in about 1 mo WELL WOMAN - ESTABLISHED PT with GAMALIEL Chris BEGUMBULLARD PA-C 11/08/2022 Last Documented On 3 10:33AM ; [facility] Ordered return to the clinic if condition worsens or new symptoms arise WELL WOMAN - ESTABLISHED PT with GAMALIEL Chris BEGUMBULLARD PA-C 11/08/2022 Last Documented On 3 10:33AM ; [facility] Recommended getting mammogra m yearly, colonoscopy (Due: 08/2024 ) and DEXA/bone density test (Due: 10/2021 ) WELL WOMAN - ESTABLISHED PT with GAMALIEL Chris BULLRAD PA-C 10/26/2021 Last Documented On 2 9:44AM ; [facility] Ordered Clinical summary pro vided to patient . Plan discussed and patient/parent/caregiver states understanding WELL WOMAN - ESTABLISHED PT with GAMALIEL Chris BULLARD PA-C 10/26/2021 Last Documented On 2 9:44AM ; [facility] Ordered follow-up visit 1 khai santa; if this PAP normal, pt would like to continue annual PAPs. Encourage yearly well woman visits for breast and female health. OK to try accupuncture. Discussed Brisdelle or Paroxetine for hot flashes. Also can try DIM supplement for hot flashes WELL WOMAN - ESTABLISHED PT with GAMALIEL Chris BULLARD PA-C 10/26/2021 Last Documented On 2 9:44AM ; [facility] Ordered return to the clinic if condition worsens or new symptoms arise WELL WOMAN - ESTABLISHED PT with GAMALIEL Chris BEGUMBULLARD PA-C 10/26/2021 Last Documented On 2 9:44AM ; [facility] Ordered return to the clinic if condition worsens or new symptoms arise PROBLEM VISIT with JESSICA PAGE DO 04/18/2020 Last Documented On 0 3:36PM ; [facility] PLAN [Use for s.o.a.p. note free text] PROBLEM VISIT with JESSICA PAGE DO 04/18/2020 Last Documented On 0 3:36PM ; [facility] Watch for signs/symptoms of infection OR OBLEM VISIT with JESSICA PAGE DO 04/18/2020 Last Documented On 0 3:36PM ; [facility] Recommended getting mammogra m yearly, colonoscopy (Due: 2024) and DEXA (Due: 2019 ) WELL WOMAN EXAM with GAMALIEL E BULLARD PA-C 10/22/2019 Last Documented On 0 9:37AM ; [facility] Ordered Clinical summary pro vided to patient . Plan discussed and patient/parent/caregiver states understanding WELL WOMAN EXAM with GAMALIEL E BULLARD PA-C 10/22/2019 Last Documented On 0 9:37AM ; [facility] Ordered follow-up visit 1 khai santa; if this PAP normal, next PAP in 1 year. Pt wants to continue with annual PAPs. Encourage yearly well woman visits for breast and female health. OTC estroven for hot flashes; pt didn't want to try SSRIs WELL WOMAN EXAM with GAMALIEL E BULLARD PA-C 10/22/2019 Last Documented On 0 9:37AM ; [facility] Ordered return to the clinic if condition worsens or new symptoms arise WELL WOMAN EXAM with GAMALIEL E BULLARD PA-C 10/22/2019 Last Documented On 0 9:37AM ; [facility] More potassium in your diet. Do the exercises on sheet provided for the dizziness. Cut the Antivert in half. Xanax as needed 1/4 to 1 q 8 to 12 hours EMERGENCY ROOM FOLLOW UP with JESSICA PAGE DO 06/05/2019 Last Documented On 0 2:53PM ; [facility] Medication instruction EMERGENCY ROOM FOLLOW UP with JESSICA PAGE DO 06/05/2019 Last Documented On 0 2:53PM ; [facility] Ordered patient to call if p roblem develops EMERGENCY ROOM FOLLOW UP with JESSICA PAGE DO 06/05/2019 Last Documented On 0 2:53PM ; [facility] Ordered return to the clinic if condition worsens or new symptoms arise EMERGENCY ROOM FOLLOW UP with JESSICA PAGE DO 06/05/2019 Last Documented On 0 2:53PM ; [facility] Recommended getting mammogra m yearly, colonoscopy (Due: 2019 ) and DEXA (Due: 2019 ) WELL WOMAN EXAM with GAMALIEL E BULLARD PA-C 10/20/2018 Last Documented On 9 10:28AM ; [facility] Ordered Clinical summary pro vided to patient . Plan discussed and patient/parent/caregiver states understanding WELL WOMAN EXAM with GAMALIEL BULLARD PA-C 10/20/2018 Last Documented On 9 10:28AM ; [facility] Ordered follow-up visit 1 khai ar; if this PAP normal, pt would like to continue yearly PAPs. Encourage yearly well woman visits for breast and female health. Discussed SCHEDULE ANALYST referral if discharge continues to be bothersome and if testing comes back negative WELL WOMAN EXAM with GAMALIEL BULLARD PA-C 10/20/2018 Last Documented On 9 10:28AM ; [facility] Ordered return to the clinic if condition worsens or new symptoms arise WELL WOMAN EXAM with GAMALIEL BULLARD PA-C 10/20/2018 Last Documented On 9 10:28AM ; [facility] Alternate ice and heat. Cont inue Naprosyn. Do not over due things. Ice after activity. Do the ultrasound EMERGENCY ROOM FOLLOW UP with JESSICA PAGE DO 09/24/2018 Last Documented On 9 9:55PM ; [facility] Ordered patient to call if p maguem develops EMERGENCY ROOM FOLLOW UP with JESSICA PAGE DO 09/24/2018 Last Documented On 9 9:55PM ; [facility] Ordered return to the clinic if condition worsens or new symptoms arise EMERGENCY ROOM FOLLOW UP with JESSICA PAGE DO 09/24/2018 Last Documented On 9 9:55PM ; [facility] Be careful w/lifting and twi sting. Muscle relaxer Ibuprofen after you finish the steroid lucien. Take w/food PROBLEM VISIT with JESSICA PAGE DO 06/23/2018 Last Documented On 9 8:47PM ; [facility] Ordered acetaminophen PROBLEM VISIT with JESSICA PAGE DO 06/23/2018 Last Documented On 9 8:47PM ; [facility] Ordered vascular smooth musc le relaxants PROBLEM VISIT with JESSICA PAGE DO 06/23/2018 Last Documented On 9 8:47PM ; [facility] Physical Therapy for right e lbow. Drink plenty of water. Can take stool softener to help with bowels. Sending urine for culture. Drinking cranberry juice or lemonade is good for urine. Start Bactrim today and start Medrol Dose Pack either or Saturday. CT Renal Stone Survey PROBLEM VISIT with JESSICA PAGE DO 06/16/2018 Last Documented On 9 12:56PM ; [facility] Medication instruction PROBLEM VISIT with JESSICA PAGE DO 06/16/2018 Last Documented On 9 12:56PM ; [facility] Ordered patient to call if p maguem develops PROBLEM VISIT with JESSICA PAGE DO 06/16/2018 Last Documented On 9 12:56PM ; [facility] Ordered return to the clinic if condition worsens or new symptoms arise PROBLEM VISIT with JESSICA PAGE DO 06/16/2018 Last Documented On 9 12:56PM ; [facility] Patient education about anti biotics: need to finish even if feeling better PROBLEM VISIT with JESSICA PAGE DO 06/16/2018 Last Documented On 9 12:56PM ; [facility] Do not pick objects up with palms down. Pick items up closer to your body. Steroids. Wear up brace. Ice after use. Three Ibuprofen three times a day with food for one week. Stop if bothering your stomach PROBLEM VISIT with JESSICA PAGE DO 04/08/2018 Last Documented On 8 10:36PM ; [facility] Ordered patient to call if p amelialem develops PROBLEM VISIT with JESSICA PAGE DO 04/08/2018 Last Documented On 8 10:36PM ; [facility] Ordered return to the clinic if condition worsens or new symptoms arise PROBLEM VISIT with JESSICA PAGE DO 04/08/2018 Last Documented On 8 10:36PM ; [facility] Do the stretches as demonstrated CHECK UP with Conrad PAGE DO 01/29/2018 Last Documented On 8 4:47PM ; [facility] Continue current medication CHECK UP with JESSICA PAGE DO 01/29/2018 Last Documented On 8 4:47PM ; [facility] Ordered patient to call if p amelialem develops CHECK UP with JESSICA PAGE DO 01/29/2018 Last Documented On 8 4:47PM ; [facility] Ordered return to the clinic if condition worsens or new symptoms arise CHECK UP with JESSICA PAGE DO 01/29/2018 Last Documented On 8 4:47PM ; [facility] Recommended getting mammogra m yearly, colonoscopy (Due: 2019) and DEXA (Due: 2017) WELL WOMAN EXAM with GAMALIEL BAY-C 09/09/2017 Last Documented On 8 10:05AM ; [facility] Ordered Clinical summary pro vided to patient . Plan discussed and patient/parent/caregiver states understanding WELL WOMAN EXAM with GAMALIEL BAY-C 09/09/2017 Last Documented On 8 10:05AM ; [facility] Ordered follow-up visit 1 khai ar; Patient would like yearly PAPs. Encourage yearly well woman visits for breast and female health. Get pelvic ultrasound. Dexa today WELL WOMAN EXAM with GAMALIEL BAY-C 09/09/2017 Last Documented On 8 10:05AM ; [facility] Ordered return to the clinic if condition worsens or new symptoms arise WELL WOMAN EXAM with GAMALIEL Chris BAY-C 09/09/2017 Last Documented On 8 10:05AM ; [facility] Will culture urine and go fr om there. OK to start the diflucan for possible yeast. Clonidine at night and OTC meds for hot flashes during the day. Call sooner if needed PROBLEM VISIT with GAMALIEL BAY-C 02/08/2017 Last Documented On 7 1:50PM ; [facility] Ordered Clinical summary pro vided to patient . Plan discussed and patient/parent/caregiver states understanding PROBLEM VISIT with GAMALIEL BAY-C 02/08/2017 Last Documented On 7 1:50PM ; [facility] Ordered follow-up visit as needed PROBLEM VISIT with GAMALIEL BAY-C 02/08/2017 Last Documented On 7 1:50PM ; [facility] Ordered return to the clinic if condition worsens or new symptoms arise PROBLEM VISIT with GAMALILE VERMAC 02/08/2017 Last Documented On 7 1:50PM ; [facility] Recommended getting mammogra m yearly, colonoscopy (Due: 2019 ) and DEXA (after menopause) WELL WOMAN EXAM with GAMALIEL VERMAC 09/06/2016 Last Documented On 7 10:07AM ; [facility] Ordered cervical Pap smear (collected) W ELL WOMAN EXAM with GAMALIEL BAY-C 09/06/2016 Last Documented On 7 10:07AM ; [facility] Ordered Clinical summary pro vided to patient . Plan discussed and patient/parent/caregiver states understanding WELL WOMAN EXAM with GAMALIEL BAY-C 09/06/2016 Last Documented On 7 10:07AM ; [facility] Ordered follow-up visit 1 khai santa; guideline for PAPs are every other year but if you want them yearly we can continue to do so. Encourage yearly well woman visits for breast and female health WELL WOMAN EXAM with GAMALIEL BAY-C 09/06/2016 Last Documented On 7 10:07AM ; [facility] Ordered return to the clinic if condition worsens or new symptoms arise WELL WOMAN EXAM with GAMALIEL BAY-C 09/06/2016 Last Documented On 7 10:07AM ; [facility] Ordered Clinical summary pro vided to patient . Plan discussed and patient/parent/caregiver states understanding PROBLEM VISIT with GAMALIEL VERMAC 09/28/2015 Last Documented On 6 8:56AM ; [facility] Ordered follow-up visit as n eeded with an office visit. Keep area as dry as possible. Cornstarch/baby powder. Hydrocortisone cream and benadryl as needed for itch. Call sooner if symptoms worsen/persist beyond 3-4 days PROBLEM VISIT with GAMALIEL VREMAC 09/28/2015 Last Documented On 6 8:56AM ; [facility] Recommended getting mammogra m yearly, colonoscopy (Due: 2019) Discussed stopping OCPs and let body go through menopause--get fasting labs and check hormones 1 month after you finish your current pack of OCPs WELL WOMAN EXAM with GAMALIEL VERMAC 09/01/2015 Last Documented On 6 4:54PM ; [facility] Ordered Clinical summary pro vided to patient . Plan discussed and patient/parent/caregiver states understanding WELL WOMAN EXAM with GAMALIEL BULLARD PA-C 09/01/2015 Last Documented On 6 4:54PM ; [facility] Ordered follow-up visit 1 khai santa; if this PAP normal, next PAP in 2 years. Encourage yearly well woman visits for breast and female health WELL WOMAN EXAM with GAMALIEL BULLARD PA-C 09/01/2015 Last Documented On 6 4:54PM ; [facility] Ordered return to the clinic if condition worsens or new symptoms arise WELL WOMAN EXAM with GAMALIEL BULLARD PA-C 09/01/2015 Last Documented On 6 4:54PM ; [facility] Ordered patient to call if p roblem develops PROBLEM VISIT with JESSICA PAGE DO 04/18/2015 Last Documented On 5 10:00AM ; [facility] Ordered return to the clinic if condition worsens or new symptoms arise PROBLEM VISIT with JESSICA PAGE DO 04/18/2015 Last Documented On 5 10:00AM ; [facility] Take the muscle relaxer. Con tinue stretches PROBLEM VISIT with JESSICA PAGE DO 04/11/2015 Last Documented On 5 7:59AM ; [facility] Start the home traction. Mus abran relaxer at betime. Start steroid lucien. Adjust again in one to two weeks if needed PROBLEM VISIT with JESSICA PAGE DO 03/16/2015 Last Documented On 5 9:17PM ; [facility] Ordered nonsteroidal anti-inflammatory P ROBLEM VISIT with JESSICA PAGE DO 03/16/2015 Last Documented On 5 9:17PM ; [facility] Ordered patient to call if p roblem develops PROBLEM VISIT with JESSICA PAGE DO 03/16/2015 Last Documented On 5 9:17PM ; [facility] Ordered return to the clinic if condition worsens or new symptoms arise PROBLEM VISIT with JESSICA PAGE DO 03/16/2015 Last Documented On 5 9:17PM ; [facility] Ordered vascular smooth musc le relaxants PROBLEM VISIT with JESSICA Penny KAYLEE NORRIS 03/16/2015 Last Documented On 5 9:17PM ; [facility] Ordered patient to call if p amelialem develops SUTURE REMOVAL with JESSICA PAGE DO 08/20/2014 Last Documented On 5 10:14PM ; [facility] Ordered return to the clinic if condition worsens or new symptoms arise SUTURE REMOVAL with JESSICA OSUNAOLEG DO 08/20/2014 Last Documented On 5 10:14PM ; [facility] stop bactrim, start levaquin , warm moist heat, clean with peroixide, neosporin, see derm SUTURE REMOVAL with JESSICA OLIVERNATALIE DO 08/16/2014 Last Documented On 5 3:46PM ; [facility] Ordered patient to call if p roblem develops SUTURE REMOVAL with JESSICA OSUNAOLEG DO 08/16/2014 Last Documented On 5 3:46PM ; [facility] Ordered return to the clinic if condition worsens or new symptoms arise SUTURE REMOVAL with JESSICA OSUNAOLEG DO 08/16/2014 Last Documented On 5 3:46PM ; [facility] Get mammogram and colonoscop y. DEXA scans start after menopause WELL WOMAN EXAM with GAMALIEL BULLARD PA-C 08/12/2014 Last Documented On 5 10:35AM ; [facility] Ordered Clinical summary pro vided to patient . Plan discussed and patient/parent/caregiver states understanding WELL WOMAN EXAM with GAMALIEL BULLARD PA-C 08/12/2014 Last Documented On 5 10:35AM ; [facility] Ordered follow-up visit 1 khai santa. If this PAP normal, will do PAP next year--if that one is normal (3 consecutive normal PAPs) will do one every other year. Encourage yearly well woman exams for breast health WELL WOMAN EXAM with GAMALIEL BULLARD PA-C 08/12/2014 Last Documented On 5 10:35AM ; [facility] Ordered return to the clinic if condition worsens or new symptoms arise WELL WOMAN EXAM with GAMALIEL BULLARD PA-C 08/12/2014 Last Documented On 5 10:35AM ; [facility] steril drape and prep, anaet hesised 3 cc lidocaine with epi, one point five cm eliptical incision, blunt dissect hyfrocated one small bleeder in the center, sutured 3-0 prolene #7, good approximation, no bleeding, pt tolerated procedure well, steri strips added for support OFFICE SURGERY with JESSICA PAGE DO 08/06/2014 Last Documented On 5 3:39PM ; [facility] Ordered patient to call if p roblem develops PROBLEM VISIT with JESSICA PAGE DO 07/28/2014 Last Documented On 5 3:01PM ; [facility] Ordered return to the clinic if condition worsens or new symptoms arise PROBLEM VISIT with JESSICA PAGE DO 07/28/2014 Last Documented On 5 3:01PM ; [facility] Ordered patient to call if p roblem develops CONSULTATION with JESSICA PAGE DO 05/28/2014 Last Documented On 5 10:32PM ; [facility] Ordered return to the clinic if condition worsens or new symptoms arise CONSULTATION with JESSICA PAGE DO 05/28/2014 Last Documented On 5 10:32PM ; [facility] Ordered an X-ray PROBLEM VISIT with JESSICA ANDREA DO 03/02/2014 Last Documented On 4 9:06AM ; [facility] Ordered patient to call if p roblem develops PROBLEM VISIT with JESSICA PAGE DO 03/02/2014 Last Documented On 4 9:06AM ; [facility] Ordered return to the clinic if condition worsens or new symptoms arise PROBLEM VISIT with JESSICA PAGE DO 03/02/2014 Last Documented On 4 9:06AM ; [facility] Ordered patient to call if p roblem develops PROBLEM VISIT with JESSICA OLIVERCHEOLEG DO 02/08/2014 Last Documented On 4 9:05PM ; [facility] Ordered return to the clinic if condition worsens or new symptoms arise PROBLEM VISIT with JESSICA PAGE DO 02/08/2014 Last Documented On 4 9:05PM ; [facility] Ordered patient to call if p roblem develops PROBLEM VISIT with JESSICA OSUNAFF DO 10/16/2013 Last Documented On 4 8:54AM ; [facility] Ordered return to the clinic if condition worsens or new symptoms arise PROBLEM VISIT with JESSICA Penny KAYLEE DO 10/16/2013 Last Documented On 4 8:54AM ; [facility] Ordered vascular smooth musc le relaxants PROBLEM VISIT with JESSICA PAGE DO 10/16/2013 Last Documented On 4 8:54AM ; [facility] ice after activity PROBLEM VISIT with JESSICA Penny MELODY LORRIEOLEG DO 10/05/2013 Last Documented On 4 10:51PM ; [facility] Ordered patient to call if p roblem develops PROBLEM VISIT with JESSICA Penny KAYLEE DO 10/05/2013 Last Documented On 4 10:51PM ; [facility] Ordered return to the clinic if condition worsens or new symptoms arise PROBLEM VISIT with JESSICA PAGE DO 10/05/2013 Last Documented On 4 10:51PM ; [facility] increase ibuprofen to three , three times a day with food for one week for knee pain, ice after activity, if no improvement will consider x-ray PROBLEM VISIT with JESSICA PAGE DO 10/02/2013 Last Documented On 4 8:45PM ; [facility] Ordered patient to call if p roblem develops PROBLEM VISIT with JESSICA PAGE DO 10/02/2013 Last Documented On 4 8:45PM ; [facility] Ordered return to the clinic if condition worsens or new symptoms arise PROBLEM VISIT with JESSICA PAGE DO 10/02/2013 Last Documented On 4 8:45PM ; [facility] be careful with lifting and twisting, call if needing more medications PROBLEM VISIT with JESSICA PAGE DO 06/30/2013 Last Documented On 4 10:31AM ; [facility] Ordered nonprescription ibup rofen three three times a day with food for one week to ten days PROBLEM VISIT with JESSICA PAGE DO 06/30/2013 Last Documented On 4 10:31AM ; [facility] Ordered nonsteroidal anti-inflammatory P ROBLEM VISIT with JESSICA PAGE DO 06/30/2013 Last Documented On 4 10:31AM ; [facility] Ordered patient to call if p roblem develops PROBLEM VISIT with JESSICA Penny MELODYLORRIEOLEG DO 06/30/2013 Last Documented On 4 10:31AM ; [facility] Ordered return to the clinic if condition worsens or new symptoms arise PROBLEM VISIT with JESSICA OLIVERLORRIEOLEG DO 06/30/2013 Last Documented On 4 10:31AM ; [facility] rest, fluids, vaseline SICK VISIT with JESSICA Zohaib OLIVARES DO 05/22/2013 Last Documented On 4 8:45PM ; [facility] Ordered patient to call if p roblem develops SICK VISIT with JESSICA OLIVERLORRIEOLEG DO 05/22/2013 Last Documented On 4 8:45PM ; [facility] Ordered return to the clinic if condition worsens or new symptoms arise SICK VISIT with JESSICA PAGE DO 05/22/2013 Last Documented On 4 8:45PM ; [facility] Ordered patient to call if p roblem develops PROBLEM VISIT with JESSICA OLIVERLORRIEOLEG DO 12/16/2012 Last Documented On 3 1:32PM ; [facility] Ordered return to the clinic if condition worsens or new symptoms arise PROBLEM VISIT with JESSICA OLIVERLORRIEOLEG DO 12/16/2012 Last Documented On 3 1:32PM ; [facility] refreeze lesions in two week s if needed PROBLEM VISIT with JESSICA PAGE DO 07/11/2012 Last Documented On 3 10:27PM ; [facility] Ordered patient to call if p roblem develops PROBLEM VISIT with JESSICA OLIVERLORRIEOLEG DO 07/11/2012 Last Documented On 3 10:27PM ; [facility] Ordered return to the clinic if condition worsens or new symptoms arise PROBLEM VISIT with JESSICA PAGE DO 07/11/2012 Last Documented On 3 10:27PM ; [facility] advil or aleve, heat PROBLEM VISIT with JESSICA STERLING DO 10/29/2011 Last Documented On 2 7:43PM ; [facility] x-ray of the neck if no impr ovement, take daily asa, get lab work done PROBLEM VISIT with JESSICA Penny MELODYNATALIE DO 06/15/2011 Last Documented On 2 9:19PM ; [facility] refreeze 1-2 weeks PROBLEM VISIT with JESSICA ESTRADA DO 05/09/2011 Last Documented On 2 10:30PM ; [facility] Ordered nonsteroidal anti-inflammatory OMT with JESSICA PAGE DO 03/21/2009 Last Documented On 9 10:32AM ; [facility] Ordered vascular smooth musc le relaxants HAS FEW OMT with JESSICA OSUNAOLEG DO 03/21/2009 Last Documented On 9 10:32AM ; [facility] Referrals To Diagnosis Dermatology ANISHA LÓPEZ MD MALIG IMAN SKIN NOS Note: 09/21/14 @ 9:10 Last Documented On 6 3:23PM ; [facility] Urologist DEVAN WALLACE MD [address] [id number] - Calculus of kidney Note: 07/07/18 @ 3:30 Last Documented On 9 10:32AM ; [facility] Instructions to patient Go to the emergency room if condition worsens Last Documented On 3 9:26AM ; [facility] Watch for signs/symptoms of infection Last Documented On 3 9:26AM ; [facility] Return to the clinic if cond ition worsens or new symptoms arise Last Documented On 1 2:59PM ; [facility] Go to the emergency room if condition worsens Last Documented On 1 2:59PM ; [facility] Return to the clinic if cond ition worsens or new symptoms arise Last Documented On 1 11:10AM ; [facility] Go to the emergency room if condition worsens Last Documented On 1 11:10AM ; [facility] Go to the emergency room if condition worsens Last Documented On 0 3:35PM ; [facility] Watch for signs/symptoms of infection Last Documented On 0 11:51AM ; [facility] Return to the clinic if cond ition worsens or new symptoms arise Last Documented On 0 8:00PM ; [facility] Go to the emergency room if condition worsens Last Documented On 0 8:00PM ; [facility] Instructions for patient Last Documented On 0 11:40AM ; [facility] Go to the emergency room if condition worsens Last Documented On 0 2:51PM ; [facility] Go to the emergency room if condition worsens Last Documented On 9 9:54PM ; [facility] Return to the clinic if cond ition worsens or new symptoms arise Last Documented On 9 10:55AM ; [facility] Return to the clinic if cond ition worsens or new symptoms arise Last Documented On 8 8:47AM ; [facility] Go to the emergency room if condition worsens Last Documented On 8 8:47AM ; [facility] Go to the emergency room if condition worsens Last Documented On 5 9:59AM ; [facility] Return to the clinic if cond ition worsens or new symptoms arise Last Documented On 5 9:01AM ; [facility] Return to the clinic if cond ition worsens or new symptoms arise Last Documented On 5 2:51PM ; [facility] Go to the emergency room if condition worsens Last Documented On 5 9:17PM ; [facility] Go to the emergency room if condition worsens Last Documented On 5 10:12PM ; [facility] Watch for signs/symptoms of infection Last Documented On 5 10:06AM ; [facility] Return to the clinic if cond ition worsens or new symptoms arise Last Documented On 5 10:29PM ; [facility] Go to the emergency room if condition worsens Last Documented On 5 10:31PM ; [facility] Return to the clinic if cond ition worsens or new symptoms arise Last Documented On 4 9:05AM ; [facility] Go to the emergency room if condition worsens Last Documented On 4 9:06AM ; [facility] Go to the emergency room if condition worsens Last Documented On 4 9:08AM ; [facility] Go to the emergency room if condition worsens Last Documented On 4 9:05PM ; [facility] Return to the clinic if cond ition worsens or new symptoms arise Last Documented On 4 8:52AM ; [facility] Go to the emergency room if condition worsens Last Documented On 4 8:54AM ; [facility] Return to the clinic if cond ition worsens or new symptoms arise Last Documented On 4 9:09AM ; [facility] Go to the emergency room if condition worsens Last Documented On 4 10:51PM ; [facility] Return to the clinic if cond ition worsens or new symptoms arise Last Documented On 4 11:16AM ; [facility] Return to the clinic if cond ition worsens or new symptoms arise Last Documented On 4 11:17AM ; [facility] Go to the emergency room if condition worsens Last Documented On 4 11:17AM ; [facility] Return to the clinic if cond ition worsens or new symptoms arise Last Documented On 4 10:56AM ; [facility] Go to the emergency room if condition worsens Last Documented On 4 10:56AM ; [facility] Return to the clinic if cond ition worsens or new symptoms arise Last Documented On 3 11:07AM ; [facility] Go to the emergency room if condition worsens Last Documented On 3 11:07AM ; [facility] Return to the clinic if cond ition worsens or new symptoms arise Last Documented On 3 11:08AM ; [facility] Go to the emergency room if condition worsens Last Documented On 3 11:08AM ; [facility] Return to the clinic if cond ition worsens or new symptoms arise Last Documented On 3 11:31AM ; [facility] Go to the emergency room if condition worsens Last Documented On 3 11:31AM ; [facility] Return to the clinic if cond ition worsens or new symptoms arise Last Documented On 2 11:20AM ; [facility] Go to the emergency room if condition worsens Last Documented On 2 11:20AM ; [facility] Return to the clinic if cond ition worsens or new symptoms arise Last Documented On 2 11:06AM ; [facility] Go to the emergency room if condition worsens Last Documented On 2 11:06AM ; [facility] Return to the clinic if cond ition worsens or new symptoms arise Last Documented On 2 9:08AM ; [facility] Go to the emergency room if condition worsens Last Documented On 2 9:08AM ; [facility] Return to the clinic if cond ition worsens or new symptoms arise Last Documented On 1 8:59AM ; [facility] Go to the emergency room if condition worsens Last Documented On 1 8:59AM ; [facility] Return to the clinic if cond ition worsens or new symptoms arise Last Documented On 0 2:43PM ; [facility] Go to the emergency room if condition worsens Last Documented On 0 2:43PM ; [facility] Return to the clinic if cond ition worsens or new symptoms arise Last Documented On 0 8:26AM ; [facility] Go to the emergency room if condition worsens Last Documented On 0 8:26AM ; [facility] Return to the clinic if cond ition worsens or new symptoms arise Last Documented On 0 10:02AM ; [facility] Education and Decision Aids were provided during visit for: Patient education about self -examination of breasts ~Daily calcium (1200mg) and Vit D (800 IU) for osteoporosis prevention Last Documented On 3 9:06AM ; [facility] Patient education about self -examination of breasts ~Daily calcium (1200mg) and Vit D (800 IU) for osteoporosis prevention Last Documented On 2 8:30AM ; [facility] Patient education about self -examination of breasts ~Daily calcium (1200mg) and Vit D (800 IU) for osteoporosis prevention Last Documented On 0 8:10AM ; [facility] Patient education about self -examination of breasts ~Daily calcium (1200mg) and Vit D (800 IU) for osteoporosis prevention Last Documented On 9 9:21AM ; [facility] Patient education about anti biotics: need to finish even if feeling better Last Documented On 9 12:08PM ; [facility] Patient education about self -examination of breasts ~Daily calcium (1200mg) and Vit D (800 IU) for osteoporosis prevention Last Documented On 8 8:50AM ; [facility] Patient education about self -examination of breasts ~Daily calcium (1200mg) and Vit D (800 IU) for osteoporosis prevention ~Discussed clonidine for hot flashes--take as needed but patient wanted to wait for now Last Documented On 7 9:41AM ; [facility] Patient education about self -examination of breasts ~Daily calcium (1200mg) and Vit D (800 IU) for osteoporosis prevention Last Documented On 6 9:04AM ; [facility] Patient education about self -examination of breasts Daily calcium and Vit D Last Documented On 5 9:37AM ; [facility] Assessments Includes: Assessments for all patient encounters Findings Encounter Date Arthralgias of multiple sites PROBLEM VISIT with JESSICA PAGE DO 11/27/2022 Last Documented On 3 5:37PM ; [facility] Somatic dysfunction of lumbar region PROBLEM VIS IT with JESSICA PAGE DO 11/27/2022 Last Documented On 3 5:37PM ; [facility] Somatic dysfunction of sacro iliac region PROBLEM VISIT with JESSICA PAGE DO 11/27/2022 Last Documented On 3 5:37PM ; [facility] Somatic dysfunction of sacrum PROBLEM VISIT with JESSICA PAGE DO 11/27/2022 Last Documented On 3 5:37PM ; [facility] Menopause WELL WOMAN - ESTABLISHED PT with GAMALIEL BULLARD PA-C 11/08/2022 Last Documented On 3 10:33AM ; [facility] Routine gynecological exam w ith cervical pap smear WELL WOMAN - ESTABLISHED PT with GAMALIEL E BULLARD PA-C 11/08/2022 Last Documented On 3 10:33AM ; [facility] Screen malignant neoplasm cervix WELL WO MAN - ESTABLISHED PT with GAMALIEL E BULLARD PA-C 11/08/2022 Last Documented On 3 10:33AM ; [facility] MAMMOGRAM SCREENING WELL WOMAN - ESTABLISHED PT with GAMALIEL E BULLARD PA-C 10/26/2021 Last Documented On 2 9:44AM ; [facility] Menopause WELL WOMAN - ESTABLISHED PT with GAMALIEL E BULLARD PA-C 10/26/2021 Last Documented On 2 9:44AM ; [facility] Osteopenia WELL WOMAN - ESTABLISHED PT with GAMALIEL E BULLARD PA-C 10/26/2021 Last Documented On 2 9:44AM ; [facility] Routine gynecological exam w ith cervical pap smear WELL WOMAN - ESTABLISHED PT with GAMALIEL E BULLARD PA-C 10/26/2021 Last Documented On 2 9:44AM ; [facility] Screen malignant neoplasm cervix WELL WO MAN - ESTABLISHED PT with GAMALIEL E BULLARD PA-C 10/26/2021 Last Documented On 2 9:44AM ; [facility] Visit for: screening for osteoporosis WE LL WOMAN - ESTABLISHED PT with GAMALIEL E BULLARD PA-C 10/26/2021 Last Documented On 2 9:44AM ; [facility] Arthralgias of multiple sites OMT with JESSICA OLIVARES DO 01/17/2021 Last Documented On 1 4:17PM ; [facility] Myalgia and myositis OMT with JESSICA PAGE DO 01/17/2021 Last Documented On 1 4:17PM ; [facility] Somatic dysfunction of lumbar region OMT with JANA PAGE DO 01/17/2021 Last Documented On 1 4:17PM ; [facility] Somatic dysfunction of sacrum OMT with JESSICA OLIVARES DO 01/17/2021 Last Documented On 1 4:17PM ; [facility] Somatic dysfunction of thoracic region OMT with JESSICA OSUANFF DO 01/17/2021 Last Documented On 1 4:17PM ; [facility] Arthralgias of multiple sites PROBLEM VISIT with JESSICA Penny PALCHEFF DO 12/08/2020 Last Documented On 1 12:48PM ; [facility] Sacroiliitis PROBLEM VISIT with JESSICA Penny PALCHE FF DO 12/08/2020 Last Documented On 1 12:48PM ; [facility] Somatic dysfunction of lumbar region PROBLEM VIS IT with JESSICA Penny PALCHEFF DO 12/08/2020 Last Documented On 1 12:48PM ; [facility] Somatic dysfunction of sacrum PROBLEM VISIT with JESSICA Penny PALCHEFF DO 12/08/2020 Last Documented On 1 12:48PM ; [facility] [Z00.00 - Encounter for gene [facility] adult medical examination without abnormal findings] visit for: routine history and physical WELL WOMAN - ESTABLISHED PT with TIMOTEO MOREL PA-C 10/24/2020 Last Documented On 1 9:50AM ; [facility] [Z12.31 - Encounter for scre ening mammogram for malignant neoplasm of breast] visit for: screening for malignant breast neoplasm WELL WOMAN - ESTABLISHED PT with TIMOTEO MOREL PA-C 10/24/2020 Last Documented On 1 9:50AM ; [facility] [Z12.4 - Encounter for scree kaitlyn for malignant neoplasm of cervix] visit for: screening for malignant cervical neoplasm WELL WOMAN - ESTABLISHED PT with TIMOTEO MOREL PA-C 10/24/2020 Last Documented On 1 9:50AM ; [facility] Dysuria PROBLEM VISIT with JESSICA Penny PALCHE FF DO 04/18/2020 Last Documented On 0 3:36PM ; [facility] Urinary tract infection PROBLEM VISIT with JESSICA Penny PALCHEFF DO 04/18/2020 Last Documented On 0 3:36PM ; [facility] Asymptomatic postmenopausal status (age related) (natural) WELL WOMAN EXAM with GAMALIEL BULLARD PA-C 10/22/2019 Last Documented On 0 9:37AM ; [facility] MAMMOGRAM SCREENING WELL WOMAN EXAM with GAMALIEL E ALEAH PA-C 10/22/2019 Last Documented On 0 9:37AM ; [facility] Osteopenia WELL WOMAN EXAM with GAMALIEL E MOODY MARTINEZ PA-C 10/22/2019 Last Documented On 0 9:37AM ; [facility] Routine gynecological exam w ith cervical pap smear WELL WOMAN EXAM with GAMALIEL E BULLARD PA-C 10/22/2019 Last Documented On 0 9:37AM ; [facility] Screen malignant neoplasm cervix WELL WO MAN EXAM with GAMALIEL E BULLARD PA-C 10/22/2019 Last Documented On 0 9:37AM ; [facility] Arthralgias in multiple sites PROBLEM VISIT with JESSICA PAGE DO 06/24/2019 Last Documented On 0 8:02PM ; [facility] Myalgia and myositis PROBLEM VISIT with JESSICA STERLING DO 06/24/2019 Last Documented On 0 8:02PM ; [facility] Somatic dysfunction of lumbar region PROBLEM VIS IT with JESSICA PAGE DO 06/24/2019 Last Documented On 0 8:02PM ; [facility] Somatic dysfunction of rib cage PROBLEM VISIT wi JESSICA PAGE DO 06/24/2019 Last Documented On 0 8:02PM ; [facility] Somatic dysfunction of sacrum PROBLEM VISIT with JESSICA PAGE DO 06/24/2019 Last Documented On 0 8:02PM ; [facility] Somatic dysfunction of thoracic region P ROBLEM VISIT with JESSICA PAGE DO 06/24/2019 Last Documented On 0 8:02PM ; [facility] Generalized anxiety disorder EMERGENCY R OOM FOLLOW UP with JESSICA PAGE DO 06/05/2019 Last Documented On 0 2:53PM ; [facility] Peripheral vertigo EMERGENCY ROOM FOLLOW UP with JESSICA PAGE DO 06/05/2019 Last Documented On 0 2:53PM ; [facility] Asymptomatic postmenopausal status (age related) (natural) WELL WOMAN EXAM with GAMALIEL E BULLARD PA-C 10/20/2018 Last Documented On 9 10:28AM ; [facility] Menopause WELL WOMAN EXAM with GAMALIEL Chris MARTINEZ PA-C 10/20/2018 Last Documented On 9 10:28AM ; [facility] Routine gynecological exam w ith cervical pap smear WELL WOMAN EXAM with GAMALIEL Chris BULLARD PA-C 10/20/2018 Last Documented On 9 10:28AM ; [facility] Screen malignant neoplasm cervix WELL WO MAN EXAM with GAMALIEL Chris BULLARD PA-C 10/20/2018 Last Documented On 9 10:28AM ; [facility] Vaginal discharge WELL WOMAN EXAM with GAMALIEL E ALEAH PA-C 10/20/2018 Last Documented On 9 10:28AM ; [facility] Synovial cyst of popliteal space EMERGEN CY ROOM FOLLOW UP with JESSICA PAGE DO 09/24/2018 Last Documented On 9 9:55PM ; [facility] Herpes zoster without complications PROBLEM VISI T with JESSICA OSUNAFF DO 06/25/2018 Last Documented On 9 2:19PM ; [facility] Sacroiliitis PROBLEM VISIT with JESSICA Penny PALCHE FF DO 06/23/2018 Last Documented On 9 8:47PM ; [facility] Somatic dysfunction of lumbar region PROBLEM VIS IT with JESSICA L PALCHEFF DO 06/23/2018 Last Documented On 9 8:47PM ; [facility] Somatic dysfunction of sacrum PROBLEM VISIT with JESSICA Zohaib PALCHEFF DO 06/23/2018 Last Documented On 9 8:47PM ; [facility] Dysuria PROBLEM VISIT with JESSICA L PALCHE FF DO 06/16/2018 Last Documented On 9 12:56PM ; [facility] Hematuria PROBLEM VISIT with JESSICA L PALCHE FF DO 06/16/2018 Last Documented On 9 12:56PM ; [facility] Lateral epicondylitis of right elbow PROBLEM VIS IT with JESSICA L PALCHEFF DO 06/16/2018 Last Documented On 9 12:56PM ; [facility] Nephrolithiasis of the left kidney PROBLEM VISIT with JESSICA L PALCHEFF DO 06/16/2018 Last Documented On 9 12:56PM ; [facility] Elbow tendonitis PROBLEM VISIT with JESSICA L PALCH EFF DO 04/08/2018 Last Documented On 8 10:36PM ; [facility] Arthralgias in multiple sites CHECK UP with JESSICA L PALCHEFF DO 01/29/2018 Last Documented On 8 4:47PM ; [facility] Bulging cervical disc CHECK UP with JESSICA L PALCH EFF DO 01/29/2018 Last Documented On 8 4:47PM ; [facility] Myalgia and myositis CHECK UP with JESSICA L PALCHE FF DO 01/29/2018 Last Documented On 8 4:47PM ; [facility] Osteopenia CHECK UP with JESSICA L PALCHEFF DO 01/29/2018 Last Documented On 8 4:47PM ; [facility] Somatic dysfunction of cervical region CHECK UP with JESSICA L PALCHEFF DO 01/29/2018 Last Documented On 8 4:47PM ; [facility] Somatic dysfunction of lumbar region CHECK UP wi th JESSICA L PALCHEFF DO 01/29/2018 Last Documented On 8 4:47PM ; [facility] Somatic dysfunction of rib cage CHECK UP with JANA KATT L PALCHEFF DO 01/29/2018 Last Documented On 8 4:47PM ; [facility] Somatic dysfunction of sacrum CHECK UP with JESSICA L PALCHEFF DO 01/29/2018 Last Documented On 8 4:47PM ; [facility] Somatic dysfunction of thoracic region CHECK UP with JESSICA L PALCHEFF DO 01/29/2018 Last Documented On 8 4:47PM ; [facility] MAMMOGRAM SCREENING WELL WOMAN EXAM with GAMALIEL VERMAC 09/09/2017 Last Documented On 8 10:05AM ; [facility] Menopause WELL WOMAN EXAM with GAMALIEL BAY-C 09/09/2017 Last Documented On 8 10:05AM ; [facility] Postmenopausal bleeding WELL WOMAN EXAM with CATARINO BAY-C 09/09/2017 Last Documented On 8 10:05AM ; [facility] Routine gynecological exam w ith cervical pap smear WELL WOMAN EXAM with GAMALIEL E BULLARD PA-C 09/09/2017 Last Documented On 8 10:05AM ; [facility] Screen malignant neoplasm cervix WELL WO MAN EXAM with GAMALIEL E BULLARD PA-C 09/09/2017 Last Documented On 8 10:05AM ; [facility] Dysuria PROBLEM VISIT with GAMALIEL E JENK INS PA-C 02/08/2017 Last Documented On 7 1:50PM ; [facility] Menopause PROBLEM VISIT with GAMALIEL E JENK INS PA-C 02/08/2017 Last Documented On 7 1:50PM ; [facility] Vaginitis PROBLEM VISIT with GAMALIEL E JENK INS PA-C 02/08/2017 Last Documented On 7 1:50PM ; [facility] MAMMOGRAM SCREENING WELL WOMAN EXAM with GAMALIEL E BULLARD PA-C 09/06/2016 Last Documented On 7 10:07AM ; [facility] Menopause WELL WOMAN EXAM with GAMALIEL E JE NKINS PA-C 09/06/2016 Last Documented On 7 10:07AM ; [facility] Routine gynecological exam w ith cervical pap smear WELL WOMAN EXAM with GAMALIEL E BULLARD PA-C 09/06/2016 Last Documented On 7 10:07AM ; [facility] Screen malignant neoplasm cervix WELL WO MAN EXAM with GAMALIEL E BULLARD PA-C 09/06/2016 Last Documented On 7 10:07AM ; [facility] Candidiasis PROBLEM VISIT with GAMALIEL E JENK INS PA-C 09/28/2015 Last Documented On 6 8:56AM ; [facility] Fatigue WELL WOMAN EXAM with GAMALIEL E JE NKINS PA-C 09/01/2015 Last Documented On 6 4:54PM ; [facility] Hyperhidrosis WELL WOMAN EXAM with GAMALIEL E JE NKINS PA-C 09/01/2015 Last Documented On 6 4:54PM ; [facility] MAMMOGRAM SCREENING WELL WOMAN EXAM with GAMALIEL E BULLARD PA-C 09/01/2015 Last Documented On 6 4:54PM ; [facility] Routine gynecological exam w ith cervical pap smear WELL WOMAN EXAM with GAMALIEL BULLARD PA-C 09/01/2015 Last Documented On 6 4:54PM ; [facility] Screening for unspecified condition WELL WOMAN EXAM with GAMALIEL BULLARD PA-C 09/01/2015 Last Documented On 6 4:54PM ; [facility] Arthralgias in multiple sites PROBLEM VISIT with JESSICA PAGE DO 04/18/2015 Last Documented On 5 10:00AM ; [facility] Myalgia and myositis PROBLEM VISIT with JESSICA Montemayor ALCHEOLEG DO 04/18/2015 Last Documented On 5 10:00AM ; [facility] Somatic dysfunction of lumbar region PROBLEM VIS IT with JESSICA L PALCHEFF DO 04/18/2015 Last Documented On 5 10:00AM ; [facility] Somatic dysfunction of pelvi c region asis low rt PROBLEM VISIT with JESSICA OLIVERLORRIEOLEG DO 04/18/2015 Last Documented On 5 10:00AM ; [facility] Somatic dysfunction of sacrum PROBLEM VISIT with JESSICA L PALCHEFF DO 04/18/2015 Last Documented On 5 10:00AM ; [facility] Somatic dysfunction of thoracic region P ROBLEM VISIT with JESSICA L PALCHEFF DO 04/18/2015 Last Documented On 5 10:00AM ; [facility] Arthralgias in multiple sites PROBLEM VISIT with JESSICA L PALCHEFF DO 04/11/2015 Last Documented On 5 7:59AM ; [facility] Somatic dysfunction of lumbar region PROBLEM VIS IT with JESSICA L PALCHEFF DO 04/11/2015 Last Documented On 5 7:59AM ; [facility] Somatic dysfunction of sacrum PROBLEM VISIT with JESSICA L PALCHEFF DO 04/11/2015 Last Documented On 5 7:59AM ; [facility] Somatic dysfunction of thoracic region P ROBLEM VISIT with JESSICA L PALCHEFF DO 04/11/2015 Last Documented On 5 7:59AM ; [facility] Arthralgias in multiple sites PROBLEM VISIT with JESSICA L PALCHEFF DO 03/16/2015 Last Documented On 5 9:17PM ; [facility] Myalgia and myositis PROBLEM VISIT with JESSICA Montemayor ALCHEFF DO 03/16/2015 Last Documented On 5 9:17PM ; [facility] Somatic dysfunction of cervical region P ROBLEM VISIT with JESSICA PAGE DO 03/16/2015 Last Documented On 5 9:17PM ; [facility] Somatic dysfunction of rib cage PROBLEM VISIT wi th JESSICA PAGE DO 03/16/2015 Last Documented On 5 9:17PM ; [facility] 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 SUTURE REMOVAL with JESSICA OSUNAFF DO 08/20/2014 Last Documented On 5 10:14PM ; [facility] Malignant skin neoplasm SUTURE REMOVAL with JESSICA PAGE DO 08/16/2014 Last Documented On 5 3:46PM ; [facility] Open wound SUTURE REMOVAL with JESSICA NEWMAN EFF DO 08/16/2014 Last Documented On 5 3:46PM ; [facility] MAMMOGRAM SCREENING WELL WOMAN EXAM with GAMALIEL BULLARD PA-C 08/12/2014 Last Documented On 5 10:35AM ; [facility] Routine gynecological exam w ith cervical pap smear WELL WOMAN EXAM with GAMALIEL BULLARD PA-C 08/12/2014 Last Documented On 5 10:35AM ; [facility] Dermatitis, Atopic tape PROBLEM VISIT with JESSICA PAGE DO 08/11/2014 Last Documented On 5 8:25PM ; [facility] Wound cellulitis PROBLEM VISIT with JESSICA OLIVERCH EFF DO 08/11/2014 Last Documented On 5 8:25PM ; [facility] Basal cell carcinoma of the skin OFFICE SURGERY with JESSICA PAGE DO 08/06/2014 Last Documented On 5 3:39PM ; [facility] Seborrhea keratosos PROBLEM VISIT with JESSICA BAY LCHEFF DO 07/28/2014 Last Documented On 5 3:01PM ; [facility] Skin neoplasm of uncertain behavior PROBLEM VISI T with JESSICA PAGE DO 07/28/2014 Last Documented On 5 3:01PM ; [facility] Arthralgias in multiple sites CONSULTATION with JESSICA Penny PALCHEFF DO 05/28/2014 Last Documented On 5 10:32PM ; [facility] Bulging cervical disc CONSULTATION with JESSICA Penny P ALCHEFF DO 05/28/2014 Last Documented On 5 10:32PM ; [facility] Neuralgia CONSULTATION with JESSICA Penny PALCHEF F DO 05/28/2014 Last Documented On 5 10:32PM ; [facility] Arthralgias in multiple sites PROBLEM VISIT with JESSICA L PALCHEFF DO 03/02/2014 Last Documented On 4 9:06AM ; [facility] Neuralgia PROBLEM VISIT with JESSICA L PALCHE FF DO 03/02/2014 Last Documented On 4 9:06AM ; [facility] 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 PROBLEM VISIT with JESSICA L PALCHEFF DO 03/02/2014 Last Documented On 4 9:06AM ; [facility] Osteopathic lesions of the rib cage PROBLEM VISI T with JESSICA L PALCHEFF DO 03/02/2014 Last Documented On 4 9:06AM ; [facility] Osteopathic lesions of the t horacic region PROBLEM VISIT with JESSICA L PALCHEFF DO 03/02/2014 Last Documented On 4 9:06AM ; [facility] Arthralgias in multiple sites PROBLEM VISIT with JESSICA L PALCHEFF DO 02/08/2014 Last Documented On 4 9:05PM ; [facility] Myalgia and myositis PROBLEM VISIT with JESSICA L P ALCHEFF DO 02/08/2014 Last Documented On 4 9:05PM ; [facility] 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 PROBLEM VISIT with JESSICA L PALCHEFF DO 02/08/2014 Last Documented On 4 9:05PM ; [facility] Osteopathic lesions of the rib cage PROBLEM VISI T with JESSICA L PALCHEFF DO 02/08/2014 Last Documented On 4 9:05PM ; [facility] Osteopathic lesions of the s acral region PROBLEM VISIT with JESSICA L PALCHEFF DO 02/08/2014 Last Documented On 4 9:05PM ; [facility] Osteopathic lesions of the t horacic region PROBLEM VISIT with JESSICA L PALCHEFF DO 02/08/2014 Last Documented On 4 9:05PM ; [facility] Arthralgias in multiple sites PROBLEM VISIT with JESSICA L PALCHEFF DO 10/16/2013 Last Documented On 4 8:54AM ; [facility] Osteopathic lesions of the l ower extremities PROBLEM VISIT with JESSICA L PALCHEFF DO 10/16/2013 Last Documented On 4 8:54AM ; [facility] Osteopathic lesions of the s acral region PROBLEM VISIT with JESSICA L PALCHEFF DO 10/16/2013 Last Documented On 4 8:54AM ; [facility] Arthralgias in multiple sites PROBLEM VISIT with JESSICA L PALCHEFF DO 10/05/2013 Last Documented On 4 10:51PM ; [facility] Myalgia and myositis PROBLEM VISIT with JESSICA L P ALCHEFF DO 10/05/2013 Last Documented On 4 10:51PM ; [facility] 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 PROBLEM VISIT with JESSICA L PALCHEFF DO 10/05/2013 Last Documented On 4 10:51PM ; [facility] Osteopathic lesions of the s acral region PROBLEM VISIT with JESSICA L PALCHEFF DO 10/05/2013 Last Documented On 4 10:51PM ; [facility] Arthralgias in multiple sites PROBLEM VISIT with JESSICA L PALCHEFF DO 10/02/2013 Last Documented On 4 8:45PM ; [facility] Myalgia and myositis PROBLEM VISIT with JESSICA L P ALCHEFF DO 10/02/2013 Last Documented On 4 8:45PM ; [facility] 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 PROBLEM VISIT with JESSICA L PALCHEFF DO 10/02/2013 Last Documented On 4 8:45PM ; [facility] 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 PROBLEM VISIT with JESSICA L PALCHEFF DO 10/02/2013 Last Documented On 4 8:45PM ; [facility] Osteopathic lesions of the rib cage PROBLEM VISI T with JESSICA L PALCHEFF DO 10/02/2013 Last Documented On 4 8:45PM ; [facility] Osteopathic lesions of the s acral region PROBLEM VISIT with JESSICA L PALCHEFF DO 10/02/2013 Last Documented On 4 8:45PM ; [facility] Osteopathic lesions of the t horacic region PROBLEM VISIT with JESSICA L PALCHEFF DO 10/02/2013 Last Documented On 4 8:45PM ; [facility] Arthralgias in multiple sites PROBLEM VISIT with JESSICA L PALCHEFF DO 06/30/2013 Last Documented On 4 10:31AM ; [facility] Myalgia and myositis PROBLEM VISIT with JESSICA L P ALCHEFF DO 06/30/2013 Last Documented On 4 10:31AM ; [facility] 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 PROBLEM VISIT with JESSICA L PALCHEFF DO 06/30/2013 Last Documented On 4 10:31AM ; [facility] Osteopathic lesions of the rib cage PROBLEM VISI T with JESSICA L PALCHEFF DO 06/30/2013 Last Documented On 4 10:31AM ; [facility] Osteopathic lesions of the s acral region PROBLEM VISIT with JESSICA L PALCHEFF DO 06/30/2013 Last Documented On 4 10:31AM ; [facility] Osteopathic lesions of the t horacic region PROBLEM VISIT with JESSICA L PALCHEFF DO 06/30/2013 Last Documented On 4 10:31AM ; [facility] Acute viral pharyngitis SICK VISIT with JESSICA L P ALCHEFF DO 05/22/2013 Last Documented On 4 8:45PM ; [facility] Arthralgias in multiple sites PROBLEM VISIT with JESSICA L PALCHEFF DO 01/23/2013 Last Documented On 3 9:10PM ; [facility] Myalgia and myositis PROBLEM VISIT with JESSICA L P ALCHEFF DO 01/23/2013 Last Documented On 3 9:10PM ; [facility] 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 PROBLEM VISIT with JESSICA L PALCHEFF DO 01/23/2013 Last Documented On 3 9:10PM ; [facility] 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 PROBLEM VISIT with JESSICA PAGE DO 01/23/2013 Last Documented On 3 9:10PM ; [facility] Osteopathic lesions of the rib cage PROBLEM VISI T with JESSICA PAGE DO 01/23/2013 Last Documented On 3 9:10PM ; [facility] Osteopathic lesions of the s acral region PROBLEM VISIT with JESSICA PAGE DO 01/23/2013 Last Documented On 3 9:10PM ; [facility] Osteopathic lesions of the t horacic region PROBLEM VISIT with JESSICA Penny PALNATALIE DO 01/23/2013 Last Documented On 3 9:10PM ; [facility] Arthralgias in multiple sites PROBLEM VISIT with JESSICA PAGE DO 12/16/2012 Last Documented On 3 1:32PM ; [facility] Myalgia and myositis PROBLEM VISIT with JESSICA STERLING DO 12/16/2012 Last Documented On 3 1:32PM ; [facility] 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 PROBLEM VISIT with JESSICA PAGE DO 12/16/2012 Last Documented On 3 1:32PM ; [facility] 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 PROBLEM VISIT with JESSICA PAGE DO 12/16/2012 Last Documented On 3 1:32PM ; [facility] Osteopathic lesions of the rib cage PROBLEM VISI T with JESSICA PAGE DO 12/16/2012 Last Documented On 3 1:32PM ; [facility] Osteopathic lesions of the t horacic region PROBLEM VISIT with JESSICA Penny PALNATALIE DO 12/16/2012 Last Documented On 3 1:32PM ; [facility] Peripheral vertigo PROBLEM VISIT with JESSICA OLIVER CHEOLEG DO 12/16/2012 Last Documented On 3 1:32PM ; [facility] Actinic keratosis PROBLEM VISIT with JESSICA OLIVERC SACHAFF DO 07/11/2012 Last Documented On 3 10:27PM ; [facility] Arthralgias in multiple sites PROBLEM VISIT with JESSICA L PALCHEFF DO 07/11/2012 Last Documented On 3 10:27PM ; [facility] Myalgia and myositis PROBLEM VISIT with JESSICA L P ALCHEFF DO 07/11/2012 Last Documented On 3 10:27PM ; [facility] 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 PROBLEM VISIT with JESSICA L PALCHEFF DO 07/11/2012 Last Documented On 3 10:27PM ; [facility] Osteopathic lesions of the rib cage PROBLEM VISI T with JESSICA L PALCHEFF DO 07/11/2012 Last Documented On 3 10:27PM ; [facility] Osteopathic lesions of the t horacic region PROBLEM VISIT with JESSICA L PALCHEFF DO 07/11/2012 Last Documented On 3 10:27PM ; [facility] Arthralgias in multiple sites PROBLEM VISIT with JESSICA L PALCHEFF DO 10/29/2011 Last Documented On 2 7:43PM ; [facility] Myalgia and myositis PROBLEM VISIT with JESSICA L P ALCHEFF DO 10/29/2011 Last Documented On 2 7:43PM ; [facility] 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 PROBLEM VISIT with JESSICA L PALCHEFF DO 10/29/2011 Last Documented On 2 7:43PM ; [facility] Osteopathic lesions of the rib cage PROBLEM VISI T with JESSICA L PALCHEFF DO 10/29/2011 Last Documented On 2 7:43PM ; [facility] Osteopathic lesions of the t horacic region PROBLEM VISIT with JESSICA L PALCHEFF DO 10/29/2011 Last Documented On 2 7:43PM ; [facility] Arthralgias in multiple sites PROBLEM VISIT with JESSICA L PALCHEFF DO 07/23/2011 Last Documented On 2 9:10PM ; [facility] Myalgia and myositis PROBLEM VISIT with JESSICA L P ALCHEFF DO 07/23/2011 Last Documented On 2 9:10PM ; [facility] 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 PROBLEM VISIT with JESSICA L PALCHEFF DO 07/23/2011 Last Documented On 2 9:10PM ; [facility] Osteopathic lesions of the s acral region PROBLEM VISIT with JESSICA L PALCHEFF DO 07/23/2011 Last Documented On 2 9:10PM ; [facility] Osteopathic lesions of the t horacic region PROBLEM VISIT with JESSICA L PALCHEFF DO 07/23/2011 Last Documented On 2 9:10PM ; [facility] Arthralgias in multiple sites PROBLEM VISIT with JESSICA L PALCHEFF DO 06/15/2011 Last Documented On 2 9:19PM ; [facility] Chest pain PROBLEM VISIT with JESSICA OLIVERCHE FF DO 06/15/2011 Last Documented On 2 9:19PM ; [facility] Myalgia and myositis PROBLEM VISIT with JESSICA Montemayor ALCJODIE DO 06/15/2011 Last Documented On 2 9:19PM ; [facility] Neuralgia PROBLEM VISIT with JESSICA Penny PALCHE FF DO 06/15/2011 Last Documented On 2 9:19PM ; [facility] 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 PROBLEM VISIT with JESSICA L PALCHEFF DO 06/15/2011 Last Documented On 2 9:19PM ; [facility] Osteopathic lesions of the rib cage PROBLEM VISI T with JESSICA Zohaib PALCHEFF DO 06/15/2011 Last Documented On 2 9:19PM ; [facility] Osteopathic lesions of the t horacic region PROBLEM VISIT with JESSICA Zohaib PALCHEFF DO 06/15/2011 Last Documented On 2 9:19PM ; [facility] Actinic keratosis PROBLEM VISIT with JESSICA OLIVERC SACHAFF DO 05/09/2011 Last Documented On 2 10:30PM ; [facility] Actinic keratosis OMT with JESSICA Penny PALCHEFF DO Last Documented On 1 10:24AM ; [facility] Arthralgias in multiple sites OMT with JESSICA OLIVARES DO 08/28/2010 Last Documented On 1 10:24AM ; [facility] Myalgia and myositis OMT with JESSICA L PALCHEFF DO 08/28/2010 Last Documented On 1 10:24AM ; [facility] Osteopathic lesions of the cervical region OMT w ith JESSICA L PALCHEFF DO 08/28/2010 Last Documented On 1 10:24AM ; [facility] Osteopathic lesions of the lumbar region OMT wit h JESSICA L PALCHEFF DO 08/28/2010 Last Documented On 1 10:24AM ; [facility] Osteopathic lesions of the rib cage OMT with MORIAH N L PALCHEFF DO 08/28/2010 Last Documented On 1 10:24AM ; [facility] Osteopathic lesions of the sacral region OMT wit JESSICA L PALCHEFF DO 08/28/2010 Last Documented On 1 10:24AM ; [facility] Osteopathic lesions of the thoracic region OMT w ith JESSICA L PALCHEFF DO 08/28/2010 Last Documented On 1 10:24AM ; [facility] Arthralgias in multiple sites OMT with JESSICA L PA LCHEFF DO 02/21/2010 Last Documented On 0 2:45PM ; [facility] Myalgia and myositis OMT with JESSICA L PALCHEFF DO 02/21/2010 Last Documented On 0 2:45PM ; [facility] Osteopathic lesions of the cervical region OMT w ith JESSICA L PALCHEFF DO 02/21/2010 Last Documented On 0 2:45PM ; [facility] Osteopathic lesions of the lumbar region OMT wit h JESSICA L PALCHEFF DO 02/21/2010 Last Documented On 0 2:45PM ; [facility] Osteopathic lesions of the rib cage OMT with MORIAH N L PALCHEFF DO 02/21/2010 Last Documented On 0 2:45PM ; [facility] Osteopathic lesions of the sacral region OMT wit h JESSICA L PALCHEFF DO 02/21/2010 Last Documented On 0 2:45PM ; [facility] Osteopathic lesions of the thoracic region OMT w ith JESSICA L PALCHEFF DO 02/21/2010 Last Documented On 0 2:45PM ; [facility] Arthralgias in multiple sites OMT with JESSICA L PA LCHEFF DO 01/04/2010 Last Documented On 0 8:27AM ; [facility] Myalgia and myositis OMT with JESSICA L PALCHEFF DO 01/04/2010 Last Documented On 0 8:27AM ; [facility] Osteopathic lesions of the cervical region OMT w ith JESSICA L PALCHEFF DO 01/04/2010 Last Documented On 0 8:27AM ; [facility] Osteopathic lesions of the lumbar region OMT wit h JESSICA L PALCHEFF DO 01/04/2010 Last Documented On 0 8:27AM ; [facility] Osteopathic lesions of the rib cage OMT with MORIAH N L PALCHEFF DO 01/04/2010 Last Documented On 0 8:27AM ; [facility] Osteopathic lesions of the sacral region OMT wit JESSICA L PALCHEFF DO 01/04/2010 Last Documented On 0 8:27AM ; [facility] Osteopathic lesions of the thoracic region OMT w ith JESSICA L PALCHEFF DO 01/04/2010 Last Documented On 0 8:27AM ; [facility] Arthralgias in multiple sites OMT with JESSICA L PA LCHEFF DO 08/09/2009 Last Documented On 0 10:05AM ; [facility] Myalgia and myositis OMT with JESSICA L PALCHEFF DO 08/09/2009 Last Documented On 0 10:05AM ; [facility] Osteopathic lesions of the cervical region OMT w ith JESSICA L PALCHEFF DO 08/09/2009 Last Documented On 0 10:05AM ; [facility] Osteopathic lesions of the lumbar region OMT wit h JESSICA L PALCHEFF DO 08/09/2009 Last Documented On 0 10:05AM ; [facility] Osteopathic lesions of the rib cage OMT with MORIAH N L PALCHEFF DO 08/09/2009 Last Documented On 0 10:05AM ; [facility] Osteopathic lesions of the sacral region OMT wit JESSICA L PALCHEFF DO 08/09/2009 Last Documented On 0 10:05AM ; [facility] Osteopathic lesions of the thoracic region OMT w ith JESSICA L PALCHEFF DO 08/09/2009 Last Documented On 0 10:05AM ; [facility] Skin neoplasm of uncertain b ehavior [place] OMT with JESSICA L PALCHEFF DO 08/09/2009 Last Documented On 0 10:05AM ; [facility] Social phobia MILD SITUATIONAL WORK OMT with MORIAH Anglin L PALCHEFF DO 08/09/2009 Last Documented On 0 10:05AM ; [facility] Arthralgias in multiple sites OMT with JESSICA L PA LCHEFF DO 06/14/2009 Last Documented On 0 9:25AM ; [facility] Myalgia and myositis OMT with JESSICA L PALCHEFF DO 06/14/2009 Last Documented On 0 9:25AM ; [facility] Osteopathic lesions of the pelvic region OMT wit h JESSICA L PALCHEFF DO 06/14/2009 Last Documented On 0 9:25AM ; [facility] Osteopathic lesions of the sacral region OMT wit h JESSICA L PALCHEFF DO 06/14/2009 Last Documented On 0 9:25AM ; [facility] Osteopathic lesions of the thoracic region OMT w ith JESSICA L PALCHEFF DO 06/14/2009 Last Documented On 0 9:25AM ; [facility] Sciatica OMT with JESSICA L PALCHEFF DO 05/30 Last Documented On 0 9:25AM ; [facility] Arthralgias in multiple sites OMT with JESSICA L PA LCHEFF DO 03/21/2009 Last Documented On 9 10:32AM ; [facility] Myalgia and myositis OMT with JESSICA L PALCHEFF DO 03/21/2009 Last Documented On 9 10:32AM ; [facility] Osteopathic lesions of the cervical region OMT w ith JESSICA L PALCHEFF DO 03/21/2009 Last Documented On 9 10:32AM ; [facility] Osteopathic lesions of the lumbar region OMT wit h JESSICA OSUNAFF DO 03/21/2009 Last Documented On 9 10:32AM ; [facility] Osteopathic lesions of the sacral region OMT wit h JESSICA Penny PALLORRIEFF DO 03/21/2009 Last Documented On 9 10:32AM ; [facility] Osteopathic lesions of the thoracic region OMT w larry Penny PALLORRIEFF DO 03/21/2009 Last Documented On 9 10:32AM ; [facility] Malignant skin neoplasm PROBLEM VISIT with JESSICA PAGE DO 01/26/2009 Last Documented On 9 2:59PM ; [facility] Seborrheic keratosis PROBLEM VISIT with JESSICA Penny Albina STERLING DO 01/26/2009 Last Documented On 9 2:59PM ; [facility] Instructions Includes: Instructions for all patient encounters Instructions to patient Go to the emergency room if condition worsens Last Documented On 3 9:26AM ; [facility] Watch for signs/symptoms of infection Last Documented On 3 9:26AM ; [facility] Return to the clinic if cond ition worsens or new symptoms arise Last Documented On 1 2:59PM ; [facility] Go to the emergency room if condition worsens Last Documented On 1 2:59PM ; [facility] Return to the clinic if cond ition worsens or new symptoms arise Last Documented On 1 11:10AM ; [facility] Go to the emergency room if condition worsens Last Documented On 1 11:10AM ; [facility] Go to the emergency room if condition worsens Last Documented On 0 3:35PM ; [facility] Watch for signs/symptoms of infection Last Documented On 0 11:51AM ; [facility] Return to the clinic if cond ition worsens or new symptoms arise Last Documented On 0 8:00PM ; [facility] Go to the emergency room if condition worsens Last Documented On 0 8:00PM ; [facility] Instructions for patient Last Documented On 0 11:40AM ; [facility] Go to the emergency room if condition worsens Last Documented On 0 2:51PM ; [facility] Go to the emergency room if condition worsens Last Documented On 9 9:54PM ; [facility] Return to the clinic if cond ition worsens or new symptoms arise Last Documented On 9 10:55AM ; [facility] Return to the clinic if cond ition worsens or new symptoms arise Last Documented On 8 8:47AM ; [facility] Go to the emergency room if condition worsens Last Documented On 8 8:47AM ; [facility] Go to the emergency room if condition worsens Last Documented On 5 9:59AM ; [facility] Return to the clinic if cond ition worsens or new symptoms arise Last Documented On 5 9:01AM ; [facility] Return to the clinic if cond ition worsens or new symptoms arise Last Documented On 5 2:51PM ; [facility] Go to the emergency room if condition worsens Last Documented On 5 9:17PM ; [facility] Go to the emergency room if condition worsens Last Documented On 5 10:12PM ; [facility] Watch for signs/symptoms of infection Last Documented On 5 10:06AM ; [facility] Return to the clinic if cond ition worsens or new symptoms arise Last Documented On 5 10:29PM ; [facility] Go to the emergency room if condition worsens Last Documented On 5 10:31PM ; [facility] Return to the clinic if cond ition worsens or new symptoms arise Last Documented On 4 9:05AM ; [facility] Go to the emergency room if condition worsens Last Documented On 4 9:06AM ; [facility] Go to the emergency room if condition worsens Last Documented On 4 9:08AM ; [facility] Go to the emergency room if condition worsens Last Documented On 4 9:05PM ; [facility] Return to the clinic if cond ition worsens or new symptoms arise Last Documented On 4 8:52AM ; [facility] Go to the emergency room if condition worsens Last Documented On 4 8:54AM ; [facility] Return to the clinic if cond ition worsens or new symptoms arise Last Documented On 4 9:09AM ; [facility] Go to the emergency room if condition worsens Last Documented On 4 10:51PM ; [facility] Return to the clinic if cond ition worsens or new symptoms arise Last Documented On 4 11:16AM ; [facility] Return to the clinic if cond ition worsens or new symptoms arise Last Documented On 4 11:17AM ; [facility] Go to the emergency room if condition worsens Last Documented On 4 11:17AM ; [facility] Return to the clinic if cond ition worsens or new symptoms arise Last Documented On 4 10:56AM ; [facility] Go to the emergency room if condition worsens Last Documented On 4 10:56AM ; [facility] Return to the clinic if cond ition worsens or new symptoms arise Last Documented On 3 11:07AM ; [facility] Go to the emergency room if condition worsens Last Documented On 3 11:07AM ; [facility] Return to the clinic if cond ition worsens or new symptoms arise Last Documented On 3 11:08AM ; [facility] Go to the emergency room if condition worsens Last Documented On 3 11:08AM ; [facility] Return to the clinic if cond ition worsens or new symptoms arise Last Documented On 3 11:31AM ; [facility] Go to the emergency room if condition worsens Last Documented On 3 11:31AM ; [facility] Return to the clinic if cond ition worsens or new symptoms arise Last Documented On 2 11:20AM ; [facility] Go to the emergency room if condition worsens Last Documented On 2 11:20AM ; [facility] Return to the clinic if cond ition worsens or new symptoms arise Last Documented On 2 11:06AM ; [facility] Go to the emergency room if condition worsens Last Documented On 2 11:06AM ; [facility] Return to the clinic if cond ition worsens or new symptoms arise Last Documented On 2 9:08AM ; [facility] Go to the emergency room if condition worsens Last Documented On 2 9:08AM ; [facility] Return to the clinic if cond ition worsens or new symptoms arise Last Documented On 1 8:59AM ; [facility] Go to the emergency room if condition worsens Last Documented On 1 8:59AM ; [facility] Return to the clinic if cond ition worsens or new symptoms arise Last Documented On 0 2:43PM ; [facility] Go to the emergency room if condition worsens Last Documented On 0 2:43PM ; [facility] Return to the clinic if cond ition worsens or new symptoms arise Last Documented On 0 8:26AM ; [facility] Go to the emergency room if condition worsens Last Documented On 0 8:26AM ; [facility] Return to the clinic if cond ition worsens or new symptoms arise Last Documented On 0 10:02AM ; [facility] Education and Decision Aids were provided during visit for: Patient education about self -examination of breasts ~Daily calcium (1200mg) and Vit D (800 IU) for osteoporosis prevention Last Documented On 3 9:06AM ; [facility] Patient education about self -examination of breasts ~Daily calcium (1200mg) and Vit D (800 IU) for osteoporosis prevention Last Documented On 2 8:30AM ; [facility] Patient education about self -examination of breasts ~Daily calcium (1200mg) and Vit D (800 IU) for osteoporosis prevention Last Documented On 0 8:10AM ; [facility] Patient education about self -examination of breasts ~Daily calcium (1200mg) and Vit D (800 IU) for osteoporosis prevention Last Documented On 9 9:21AM ; [facility] Patient education about anti biotics: need to finish even if feeling better Last Documented On 9 12:08PM ; [facility] Patient education about self -examination of breasts ~Daily calcium (1200mg) and Vit D (800 IU) for osteoporosis prevention Last Documented On 8 8:50AM ; [facility] Patient education about self -examination of breasts ~Daily calcium (1200mg) and Vit D (800 IU) for osteoporosis prevention ~Discussed clonidine for hot flashes--take as needed but patient wanted to wait for now Last Documented On 7 9:41AM ; [facility] Patient education about self -examination of breasts ~Daily calcium (1200mg) and Vit D (800 IU) for osteoporosis prevention Last Documented On 6 9:04AM ; [facility] Patient education about self -examination of breasts Daily calcium and Vit D Last Documented On 5 9:37AM ; [facility] Medical Equipment - Implanted Devices Includes: Current and historical Devices No Medical Equipment Recorded Medications Includes: Current and historical Medications Current Medications (continue as prescribed) Vitamin D 50 MCG (1999 [place]) Oral Tablet 10/24/2020 Pr ovider: Diagnosis: Last Documented On 10/24/2020 8:54AM By Tiffany FROST ; [facility] ALPRAZolam 0.25 MG Oral Tablet 06/05/2019 Provider: JESSICA PAGE DO Diagnosis: Generalized anxi ety disorder as directed 4 to 1 q 8 to 12 hrs prn anxiety Last Documented On 06/05/2019 2:26PM By JESSICA PAGE DO ; [facility] Past Medications on file Veozah 45 MG Oral Tablet 11/08/2022 - 12/27/2022 Provider: GAMALIEL BULLARD PA-C Diagnosis: Menopausal and f emale climacteric states One tablet daily Last Documented On 3 9:49AM By GAMALIEL BULLARD PA-C ; [facility] Bactrim DS 800-160 MG Oral Tablet 04/18/2020 - 10/24/2020 Provider: JESSICA PAGE DO Diagnosis: Urinary tract infection, site not specified One tablet twice a day Last Documented On 10/24/2020 8:49AM By Tiffany FROST ; [facility] Diflucan 150MG Oral Tablet 10/07/2018 - 10/22/2019 Pro vider: GAMALIEL BULLARD PA-C Diagnosis: One tablet daily Last Documented On 10/22/2019 8:10AM By Nora FROST ; [facility] Zovirax 800MG Oral Tablet 06/25/2018 - 09/24/2018 Provider: JESSICA PAGE DO Diagnosis: Zoster without complications One tablet four times a day Last Documented On 09/24/2018 1:44PM By ARIEL FROST ; [facility] Chlorzoxazone 500MG Oral Tablet 06/23/2018 - 09/24/2018 Provider: JESSICA PAGE DO Diagnosis: Segmental and so matic dysfunction of lumbar region as directed 1/2 to 1 tab q 6 hours prn Last Documented On 09/24/2018 1:44PM By ARIEL FROST ; [facility] Calcium 600MG Oral Tablet 06/23/2018 - 10/22/2019 Prov ider: Diagnosis: Last Documented On 10/22/2019 8:10AM By Nora FROST ; [facility] Bactrim DS 800-160MG Oral Tablet 06/16/2018 - 06/23/19 19 Provider: JESSICA PAGE DO Diagnosis: Dysuria One tablet twice a day Last Documented On 06/23/2018 10:25AM By Naila FROST ; [facility] Medrol 4MG Oral Tablet Therapy Pack 06/16/2018 - 06/23/2018 Provider: JESSICA PAGE DO Diagnosis: Pain in right el bow as directed Last Documented On 06/23/2018 10:25AM By Naila FROST ; [facility] Estroven Menopause Relief Oral Capsule 01/29/2018 - Provider: Diagnosis: Last Documented On 06/16/2018 9:13AM By ARIEL FROST ; [facility] Diflucan 150MG Oral Tablet 02/08/2017 - 01/29/2018 Provider: GAMALIEL BULLARD PA-C Diagnosis: Acute vaginitis Take one tablet PO x 1, Repe at in 4 days if needed. Last Documented On 01/29/2018 8:20AM By ARIEL FROST ; [facility] CloNIDine HCl 0.1MG Oral Tablet 02/08/2017 - 01/29/2018 Provider: GAMALIEL BULLARD PA-C Diagnosis: Menopausal and f emale climacteric states Take 1 tab PO q HS. Last Documented On 01/29/2018 8:20AM By ARIEL FROST ; [facility] Nystatin [id number] UNIT/GM Powder 09/28/2015 - 09/06/2016 Provider: GAMALIEL BULLARD PA-C Diagnosis: Candidiasis, unspecified apply to affected area BID until clear Last Documented On 09/06/2016 9:01AM By CHRISTIAN FROST ; [facility] Diflucan 150 MG Tablet 09/28/2015 - 09/06/2016 Provider: GAMALIEL BULLARD PA-C Diagnosis: Candidiasis, unspecified Take one tablet PO x 1, Repe at in 4-5 days if needed. Generic. Last Documented On 09/06/2016 9:01AM By CHRISTIAN FROST ; [facility] Aspir-Low 81 MG Tablet Delayed Release 09/01/2015 - Provider: Diagnosis: 1 tab every other day Last Documented On 11/08/2022 9:06AM By ARIEL FROST ; [facility] Ortho Tri-Cyclen Lo 0.18/0.215/0.25 MG-25 MCG Tablet 07/11/2015 - 09/28/2015 Provider: GAMALIEL BULLARD PA-C Diagnosis: One tablet daily Last Documented On 6 8:53AM By GAMALIEL BULLARD PA-C ; [facility] Medrol (Lucien) 4 MG Tablet 03/16/2015 - 09/06/2016 Provider: JESSICA PAGE DO Diagnosis: Pain in unspecif ied joint as directed Last Documented On 09/06/2016 9:01AM By CHRISTIAN FROST ; [facility] Levaquin 500 MG Tablet 08/16/2014 - 03/16/2015 Provide r: JESSICA PAGE DO Diagnosis: OPEN WOUND SITE NEC One tablet daily Last Documented On 03/16/2015 2:19PM By GUSTABO LAMBERT CMA ; [facility] Ortho Tri-Cyclen Lo 0.18/0.215/0.25 MG-25 MCG Tablet 08/12/2014 - 07/11/2015 Provider: GAMALIEL BULLARD PA-C Diagnosis: One tablet daily Last Documented On 07/11/2015 5:41PM By CHRISTOPH FROST ; [facility] Bactrim DS 800-160 MG Tablet 08/11/2014 - 03/16/2015 Provider: JESSICA PAGE DO Diagnosis: Cellulitis NOS 1 twice a day Last Documented On 03/16/2015 2:20PM By GUSTABO LAMBERT CMA ; [facility] MethylPREDNISolone (Lucien) 4 M G OR TABS 03/12/2014 - 08/11/2014 Provider: JESSICA PAGE DO Diagnosis: Last Documented On 5 6:09PM By MARIA GUADALUPE FROST ; [facility] Parafon Forte DSC 500 MG OR TABS 10/16/2013 - 08/11/2014 Provider: JESSICA PAGE DO Diagnosis: JOINT PAIN-MULT JTS prn Last Documented On 08/11/2014 5:56PM By Funmilayo Richardson MA ; [facility] ALPRAZolam 0.25 MG OR TABS 06/15/2011 - 03/16/2015 Pro vider: JESSICA PAGE DO Diagnosis: PALPITATIONS 1/4 to one q 12 hrs Last Documented On 03/16/2015 2:20PM By GUSTABO LAMBERT CMA ; [facility] Parafon Forte DSC 500 MG OR TABS 08/28/2010 - 10/16/2013 Provider: JESSICA PAGE DO Diagnosis: JOINT PAIN-MULT JTS Last Documented On 10/16/2013 8:54AM By JESSICA PAGE DO ; [facility] Bystolic 5 MG OR TABS 08/09/2009 - 08/09/2009 Provider : Diagnosis: 1/4 TO 1/2 NEEDED, SAMPLES GIVEN Last Documented On 08/09/2009 10:04AM By JESSICA PAGE DO ; [facility] Bystolic 5 MG OR TABS 08/09/2009 - 08/11/2014 Provider : JESSICA PAGE DO Diagnosis: 1/4 TO 1/2 NEEDED, SAMPLES GIVEN Last Documented On 5 6:09PM By MARIA GUADALUPE FROST ; [facility] Medications Administered Includes: Administered Medications in patient's chart Medications Administered Diagnosis Date Pro vider DEPO-Medrol 40 MG/ML IJ SUSP 03/16/2015 JESSICA PAGE DO Last Documented On 5 3:02PM By MARIA GUADALUPE RUSH Wero ; [facility] Results Includes: Results from 08/01/2023 through 07/31/2024 No Results Recorded For Specified Dates History of Present Illness History of Present Illness not supported for this document type No History of Present Illness Recorded Social History Description Last Updated Tobacco non-user 01/17/2021 Last Documented On 1 4:17PM ; [facility] Current nonsmoker 04/18/2020 Last Documented On 0 3:36PM ; [facility] Non-smoker 10/22/2019 Last Documented On 0 9:37AM ; [facility] Smoking status : Never smoker 06/24/2019 Last Documented On 0 8:02PM ; [facility] Sexually active ; current partner x 40 y rs 10/20/2018 Last Documented On 9 10:28AM ; [facility] No tobacco use 01/29/2018 Last Documented On 8 4:47PM ; [facility] Procedures and Surgical History Surgical History Last Updated No history of tubal ligation 10/24/2020 Last Documented On 1 9:50AM ; [facility] History of appendectomy 08/12/2014 Last Documented On 5 10:35AM ; [facility] Medical History Includes: Medical History in patient's chart Description Last Updated History of screening mammogram was perfo rmed 11/10/2021 11/08/2022 Last Documented On 3 10:33AM ; [facility] History of colonoscopy fiberoptic was pe rformed 09/16/2019 --repeat 5 yrs 10/26/2021 Last Documented On 2 9:44AM ; [facility] LMP: 08/18/2015 09/01/2015 Last Documented On 6 4:54PM ; [facility] History of cervical dysplasia 2012--colp o neg 08/12/2014 Last Documented On 5 10:35AM ; [facility] Aborta 0 08/12/2014 Last Documented On 5 10:35AM ; [facility] 0 08/12/2014 Last Documented On 5 10:35AM ; [facility] Para 0 08/12/2014 Last Documented On 5 10:35AM ; [facility] Family History Includes: Family History in patient's chart Description Last Updated Family history of malignant neoplasm of large intestine MATERNAL GRANDMOTHER , MOTHER PRE CANCER 09/01/2015 Last Documented On 6 4:54PM ; [facility] Maternal history of colon cancer 015 Last Documented On 5 7:59AM ; [facility] Maternal history of diabetes mellitus Last Documented On 5 7:59AM ; [facility] Maternal history of heart disease 2014 Last Documented On 5 7:59AM ; [facility] Maternal history of hyperlipidemia 04/11 Last Documented On 5 7:59AM ; [facility] Maternal history of hypertension Last Documented On 5 7:59AM ; [facility] Maternal history of stroke syndrome 03/29 Last Documented On 5 7:59AM ; [facility] Maternal history of thyroid disorder Last Documented On 5 7:59AM ; [facility] Paternal history of heart disease 2014 Last Documented On 5 7:59AM ; [facility] Paternal history of hyperlipidemia 04/11 Last Documented On 5 7:59AM ; [facility] Paternal history of hypertension 015 Last Documented On 5 7:59AM ; [facility] Maternal grandmother's history of diabet es mellitus GRANDMOTHER , AUNT 08/12/2014 Last Documented On 5 10:35AM ; [facility] Family history of essential hypertension GRANDMOTHER, MOTHER 08/12/2014 Last Documented On 5 10:35AM ; [facility] No family history of malignant female br east neoplasm 08/12/2014 Last Documented On 5 10:35AM ; [facility] Review of Systems Review of Systems not supported for this document type No Review of Systems Recorded Mental Status No Mental Status Recorded Functional Status No Functional Status Recorded Physical Exam Physical Exam not supported for this document type No Physical Exam Recorded Immunizations Includes: Immunizations in patient's chart Vaccine Dose # Date Site Reaction(s) Status Source COVID-19 Moderna 1 06/30/2020 Left Deltoid Complete (Reported) Patient Last Documented On 1 10:48AM ; [facility] COVID-19 Moderna 2 07/28/2020 Left Deltoid Complet e (Reported) Patient Last Documented On 1 10:48AM ; [facility] Influenza (Quadrivalent)36 mo.& older PF 0.5ml (SD) 1 01/29/2018 Left Arm Complete (Administered) [facility] Last Documented On 8 9:22AM ; [facility] Td (Decavac) 1 10/15/2007 Complete (Report ed) Patient Last Documented On 1 10:48AM ; [facility] Allergies Includes: Active, inactive, and resolved Allergies No Known Allergies Insurance Includes: Active Insurance Policies Plan Name Member ID Group # Subscriber Relationship Effect cali Dates 1 - [employer] [id number] SHANNAN SOSA A Clinical Notes Includes: Signed Clinical Notes starting from 05/18/2022 No Clinical Notes Recorded
--- OUTSIDE RECORDS SUMMARY | 2024-07-31 10:35 | XMS_ITS | Clinical Summary ---
Author Organization 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 Synovial Cyst of Popliteal Space 09/28/2018 MORIAH PAGE DO Active Last Documented On 9 9:54PM ; [facility] Dysuria 06/22/2018 JESSICA PAGE DO Active Last Documented On 9 12:56PM ; [facility] Hematuria 06/22/2018 JESSICA PAGE DO Active Last Documented On 9 12:56PM ; [facility] Nephrolithiasis Left 06/20/2018 JESSICA PAGE DO Active Last Documented On 9 12:56PM ; [facility] Note: Unchanged Hemangioma of other sites 06/20/2018 JESSICA ESTRADA DO Active Last Documented On 9 11:04AM ; [facility] Note: Unchanged Bulging Intervertebral Disc Cervical 01/29/2018 JESSICA PAGE DO Active Last Documented On 8 8:49AM ; [facility] Note: Unchanged Skin Neoplasm Malignant 08/22/2014 JESSICA L PALCH EFF DO Active Last Documented On 5 3:44PM ; [facility] Abnormal Pap Smear 08/12/2014 GAMALIEL BULLARD PA-C Active Last Documented On 09/01/2015 9:40AM ; [facility] Note: ASCUS 2013 HPV [...] On 10/24/2020 8:54AM By Tiffany FROST ; [facility] ALPRAZolam 0.25 MG Oral Tablet 06/05/2019 Provider: JESSICA PAGE DO Diagnosis: Generalized anxi ety disorder as directed 05/02 to q 8 to 12 hrs prn anxiety Last Documented On 06/05/2019 2:26PM By JESSICA PAGE DO ; [facility] Medications Administered Includes: Administered Medications from this encounter No Administered Medications Recorded Results Includes: Results discussed during this encounter No Results Recorded For Specified Dates History of Present Illness Includes: History of Present Illness from this encounter No History of Present Illness Recorded Social History No Social History Recorded - Smoking Status Unknown Medical History Includes: Medical History addressed during this encounter No Medical History Recorded Family History Includes: Family History addressed during this encounter No Family History Recorded Review of Systems Includes: Review of Systems [...] Location Date Check-In Time Check-Out Time Diagnosis REFERRAL JESSICA PAGE DO 02/19/2022 1:39PM 11:59PM Insurance Includes: Active Insurance Policies Plan Name Member ID Group # Subscriber Relationship Effect cali Dates - [employer] [id number] SHANNAN SOSA Clinical Notes Includes: Clinical Notes from this encounter No Clinical Notes Recorded
== END 2024-07-30 10:10 | disposition home or self-care (01) ==
LOC: ANHLAB 07-31 10:09
PROVIDERS: Visit Provider Plastic Surgery
DX: D03.59 Melanoma in situ of other part of trunk (principal); C44.709 Unspecified malignant neoplasm of skin of left lower limb, including hip
CPT/HCPCS: 88305; 88342